=== PATIENT | female | born 1960 | race Caucasian/White ===

== ENCOUNTER 2019-12-03 09:23 | Outpatient (CLI) | payer MEDICARE, OTHER, SELFPAY ==
--- NOTE | 2019-12-03 09:25 | XR_ITS ---
WS: [id number] ABDOMEN: SUPINE FILM HISTORY: Renal Calculi COMPARISON: 08/14/2019 Prior cholecystectomy. Moderate fecal retention. Right kidney: No renal or ureteral stone identified. Left kidney: No renal or ureteral stone identified. XR/XR KUB [id number] IMPRESSION: No renal or ureteral calcifications identified.
== END 2019-12-03 09:24 | disposition home or self-care (01) ==
LOC: RAD 09:28
PROVIDERS: Family Provider Family Medicine; PCP Family Medicine; Visit Provider Urology
DX: N20.0 Calculus of kidney (principal)
CPT/HCPCS: 74018; 81001; 87077; 87086; 87186

== ENCOUNTER → 2019-12-13 09:56 | Outpatient (BNVA) | payer MEDICARE, OTHER, SELFPAY | PROVIDERS: Family Provider Family Medicine; PCP Family Medicine; Visit Provider Anesthesiology | DX: M54.5 Low back pain (principal); F17.210 Nicotine dependence, cigarettes, uncomplicated; Z71.6 Tobacco abuse counseling; Z79.891 Long term (current) use of opiate analgesic | CPT/HCPCS: 99214 ==

== ENCOUNTER 2020-02-12 12:38 | Emergency (ER) | payer MEDICARE, OTHER, SELFPAY ==
[2020-02-12 12:39] VITALS: BP 129/80; PULSE 82; RESP 18; TEMP 36.9; O2SAT 97; BMI 24.7
[2020-02-12 12:51] VITALS: RESP 16
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
[2020-02-12] MEDS: HYDROcodone-acetaminophen 7.5-325 mg Tablet 1 TAB PO (13:55)
[2020-02-12 15:40] VITALS: RESP 16; O2SAT 98
== END 2020-02-12 15:41 | disposition home or self-care (01) ==
PROVIDERS: Emergency Provider Physician Assistant; Family Provider Family Medicine; PCP Family Medicine
DX: S01.81XA Laceration without foreign body of other part of head, initial encounter (principal); V43.62XA Car passenger injured in collision with other type car in traffic accident, initial encounter
CPT/HCPCS: 12051; 12345; 70450; 70486; 73562; 99281; 99283; J2001

== ENCOUNTER 2020-02-18 10:01 | Outpatient (CLI) | payer MEDICARE, OTHER, SELFPAY ==
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
== END 2020-02-18 10:02 | disposition home or self-care (01) ==
LOC: RADWPI 10:05
PROVIDERS: Family Provider Family Medicine; PCP Family Medicine; Visit Provider Nurse Practitioner Family
DX: M54.2 Cervicalgia (principal); V89.2XXA Person injured in unspecified motor-vehicle accident, traffic, initial encounter; G44.309 Post-traumatic headache, unspecified, not intractable; M47.812 Spondylosis without myelopathy or radiculopathy, cervical region
CPT/HCPCS: 72040

== ENCOUNTER 2020-02-21 14:53 | Emergency (ER) | payer MEDICARE, OTHER, SELFPAY ==
[2020-02-21 14:58] VITALS: BP 139/97; PULSE 94; RESP 16; TEMP 36.1; O2SAT 96; BMI 24.6
--- NOTE | 2020-02-21 15:09 | ECG_ITS ---
Measurements Intervals [place] Rate: 91 P: 49 [place]: 181 QRS: 30 QRSD: 91 T: 36 QT: 339 QTc: 418 SINUS RHYTHM Compared to ECG 03/10/2019 14:59:46 Sinus tachycardia no longer present T-wave abnormality no longer present Electronically Signed On 02-21-2020 18:26:03 CDT by Nadir Navas M.D. [email or web address]
--- NOTE | 2020-02-21 15:19 | XR_ITS ---
WS: [id number] PORTABLE CHEST HISTORY: chest pain COMPARISON: 03/10/2019 Lungs are clear and well expanded. No pleural effusion or pneumothorax. Cardiac size: Normal. Mediastinum/Aorta: Normal mediastinum. No osseous abnormality seen. XR/XR chest 1V portable [id number] IMPRESSION: Unremarkable portable chest.
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
[2020-02-21 15:33] VITALS: O2SAT 98
[2020-02-21 15:56] LABS: Basophils # 0.1 10^3/uL (0.0-0.1); Basophils % 0.7 %; Eosinophils # 0.5 10^3/uL (0.0-0.8); Eosinophils % 4.6 %; Hematocrit 44.8 % (37.0-47.0); Hemoglobin 14.6 g/dL (11.5-15.3); Lymphocytes # 4.2 10^3/uL (0.8-4.8); Lymphocytes % 40.7 %; Mean Corpuscular HGB Conc 32.6 g/dL (30.0-36.0); Mean Corpuscular Hemoglobin 30.4 pg (28.0-34.0); Mean Corpuscular Volume 93.3 fL (81-99); Mean Platelet Volume 9.8 fL (7.4-10.4); Monocytes # 0.9 10^3/uL (0.2-0.9); Monocytes % 8.9 %; Neutrophils # 4.6 10^3/uL (1.8-7.7); Neutrophils % 44.7 %; Nucleated Red Blood Cells % 0 %; Platelet Count 347 10^3/cmm (130-400); Red Cell Distribution Width 14.3 % (12.1-15.1); White Blood Count 10.2 10^3/uL (4.0-10.0)
[2020-02-21] MEDS: lidocaine 2% viscous 15 ML, aluminum-mag hydrox-simethicon 30 ML, sucralfate oral liq 1 GM PO (16:03)
[2020-02-21] MEDS: sodium chloride 0.9% 1,000 ML 100 ML IV (16:03)
[2020-02-21 16:06] VITALS: BP 150/83; PULSE 92; O2SAT 95
[2020-02-21 16:21] LABS: H. Pylori IgG Antibody Negative (Negative)
[2020-02-21 16:50] LABS: Troponin(5th) Baseline 6 ng/mL (0-10)
[2020-02-21 16:56] LABS: Bilirubin Urine Neg (NEGATIVE); Blood Urine Neg (Negative); Glucose Urine UA Norm (Normal); Ketones Urine Negative (Negative); Nitrate Urine Negative (Negative); Protein Urine Neg (Negative); Urine Appearance Clear (CLEAR); Urine Color Yellow (Yellow); pH Urine 5 (5-7)
[2020-02-21 16:57] LABS: Add Urine Culture? No; Bacteria Urine 1+; Leukocyte Esterase Urine Negative (Negative); Squamous Epithelial Cell Urine 55-80 (0-5); Urobilinogen Urine Norm (Negative)
--- NOTE | 2020-02-21 17:09 | ECG_ITS ---
Measurements Intervals [place] Rate: 80 P: 48 AK: 189 QRS: 18 QRSD: 94 T: 38 QT: 357 QTc: 414 SINUS RHYTHM Compared to ECG 03/10/2019 14:59:46 Sinus tachycardia no longer present T-wave abnormality no longer present Electronically Signed On 02-21-2020 18:27:11 CDT by Nadir Navas M.D. [email or web address]
[2020-02-21 17:43] LABS: Alanine Aminotransferase 17 U/L (0-33); Albumin Level 4.3 g/dL (3.5-5.2); Alkaline Phosphatase 118 IU/L (35-105); Anion Gap 18.9 (5-19); Aspartate Amino Transferase 28 U/L (0-32); Blood Urea Nitrogen 10 mg/dL (8-23); Calcium 10.4 mg/dL (8.5-10.5); Carbon Dioxide 20 mmol/L (22-29); Chloride 104 mmol/L (98-107); Globulin 2.8 g/dL (1.3-4.6); Glomerular Filtration Rate 56.4 mL/min (90-130); Glucose 107 mg/dL (65-115); Lipase 24 U/L (13-60); Osmolality Calculated 284 mOsm/kg (285-295); Potassium 3.9 mmol/L (3.5-5.1); Sodium 139 mmol/L (136-145); Total Bilirubin 0.2 mg/dL (0.15-1.2); Total Protein 7.1 g/dL (6.6-8.7)
[2020-02-21 18:07] LABS: Troponin 5 2HR Delta 0 ABS# (0-10)
[2020-02-21 18:35] VITALS: BP 122/67; PULSE 82; O2SAT 98
== END 2020-02-21 18:35 | disposition home or self-care (01) ==
PROVIDERS: Emergency Medicine; Emergency Provider Physician Assistant; Family Provider Family Medicine; PCP Family Medicine
DX: R10.13 Epigastric pain (principal); Z79.891 Long term (current) use of opiate analgesic; Z82.49 Family history of ischemic heart disease and other diseases of the circulatory system; Z83.3 Family history of diabetes mellitus; F17.210 Nicotine dependence, cigarettes, uncomplicated
CPT/HCPCS: 12345; 36415; 71045; 80053; 81001; 83690; 83735; 84484; 85025; 86677; 93005; 96360; 96361; 99283; J7030

== ENCOUNTER 2020-03-03 07:03 | Outpatient (CLI) | payer MEDICARE, OTHER, SELFPAY ==
--- NOTE | 2020-03-03 07:07 | US_ITS ---
WS: [id number] RIGHT UPPER QUADRANT ULTRASOUND HISTORY: RIGHT UPPER QUADRANT PAIN COMPARISON: 12/07/2017 Liver: 14.5 cm in length. Normal size and echogenicity with no intrahepatic dilatation. No mass. Gallbladder: Prior cholecystectomy. CBD: 0.4 cm Pancreas: Normal size and echogenicity. Right kidney: 10.5 cm in length. Normal echogenicity with no mass or hydronephrosis. Aorta and IVC: Unremarkable. No ascites. US/US abdomen limited [id number] IMPRESSION: Interval cholecystectomy since 12/07/2017. Otherwise negative RIGHT upper quadran t.
== END 2020-03-03 07:04 | disposition home or self-care (01) ==
LOC: RAD 07:03
PROVIDERS: Family Provider Family Medicine; PCP Family Medicine; Visit Provider Nurse Practitioner Family
DX: R10.11 Right upper quadrant pain (principal); R10.13 Epigastric pain
CPT/HCPCS: 76705

== ENCOUNTER → 2020-04-02 13:16 | Outpatient (BNVA) | payer MEDICARE, OTHER, SELFPAY | PROVIDERS: Family Provider Family Medicine; PCP Family Medicine; Visit Provider Nurse Practitioner Family | DX: N30.80 Other cystitis without hematuria (principal) | CPT/HCPCS: 80053; 81001; 87077; 87086; 87186 ==

== ENCOUNTER → 2020-05-05 10:17 | Outpatient (BNVA) | payer MEDICARE, OTHER, SELFPAY | PROVIDERS: Family Provider Family Medicine; PCP Family Medicine; Visit Provider Anesthesiology | DX: M54.41 Lumbago with sciatica, right side (principal); M54.42 Lumbago with sciatica, left side; F17.210 Nicotine dependence, cigarettes, uncomplicated; Z79.891 Long term (current) use of opiate analgesic | CPT/HCPCS: 99213; 99214 ==

== ENCOUNTER 2020-06-24 13:58 | Outpatient (CLI) | payer MEDICARE, OTHER, SELFPAY ==
--- NOTE | 2020-06-24 14:00 | XR_ITS ---
WS: [id number] EXAM: ABDOMINAL KUB DATE OF EXAMINATION: 06/24/2020, 1413 hours COMPARISON: Abdominal KUB from 12/03/2019. HISTORY: Patient is 59 years old with history of kidney stones. Follow-up. FINDINGS: Bowel gas pattern is normal. Approximately 3 small calcifications are seen over the right kidney silh ouette. Largest about 3 mm in size felt to represent nonobstructing calyceal calcifications. No calci fications are seen over the left kidney silhouette. The top of both kidneys silhouettes are not inclu ded on the image. No calcifications along the course of the ureters. Changes of arthritis are seen in the spine. XR/XR KUB [id number] IMPRESSION: 3 calcification overlying the right kidney silhouette suggesting nonobstructing calyceal stones. No calcification overlying the left kidney or course of the u reters.
== END 2020-06-24 13:59 | disposition home or self-care (01) ==
LOC: RAD 14:02
PROVIDERS: PCP Family Medicine; Visit Provider Urology
DX: N20.9 Urinary calculus, unspecified (principal); N20.0 Calculus of kidney
CPT/HCPCS: 74018; 80053; 81001

== ENCOUNTER → 2020-07-31 10:49 | Outpatient (BNVA) | payer MEDICARE, OTHER, SELFPAY | PROVIDERS: Family Provider Family Medicine; PCP Internal Medicine; Visit Provider Anesthesiology | DX: M54.42 Lumbago with sciatica, left side (principal); M54.41 Lumbago with sciatica, right side; F17.210 Nicotine dependence, cigarettes, uncomplicated; Z79.891 Long term (current) use of opiate analgesic; Z71.6 Tobacco abuse counseling | CPT/HCPCS: 99214 ==

== ENCOUNTER → 2020-08-05 10:52 | Outpatient (BNVA) | payer MEDICARE, OTHER, SELFPAY | PROVIDERS: Family Provider Family Medicine; PCP Internal Medicine; Visit Provider Urology | DX: N30.80 Other cystitis without hematuria (principal); R39.198 Other difficulties with micturition; N20.9 Urinary calculus, unspecified | CPT/HCPCS: 81001 ==

== ENCOUNTER 2020-09-16 11:36 | Outpatient (CLI) | payer MEDICARE, OTHER, SELFPAY ==
--- NOTE | 2020-09-16 11:51 | MM_ITS ---
WS: [id number] BILATERAL DIGITAL SCREENING MAMMOGRAPHY WITH CAD CLINICAL INFORMATION: SCREENING HISTORY: Screening mammogram. No current complaints. COMPARISON: . TECHNIQUE: Bilateral CC and MLO views. FINDINGS: The breasts are composed of heterogeneous fibroglandular density tissue, which can limit the detectio n of small underlying mass lesions. No suspicious mass, asymmetry, calcifications, or architectural d istortion. No evidence of malignancy. Stable left and intramammary lymph nodes. Biopsy clip left [address]. Vascular calcification. A few punctate calcifications. MM/[place] [id number] IMPRESSION: BI-RADS: 2-Benign FOLLOW UP: 1 Year Follow-up Recommend return to annual screening mammography.
== END 2020-09-16 11:37 | disposition home or self-care (01) ==
LOC: RADSHAW 11:42
PROVIDERS: PCP Internal Medicine; Visit Provider Internal Medicine
DX: Z12.31 Encounter for screening mammogram for malignant neoplasm of breast (principal)
CPT/HCPCS: 77067

== ENCOUNTER → 2021-01-21 13:30 | Outpatient (BNVA) | payer MEDICARE, OTHER, SELFPAY | PROVIDERS: PCP Internal Medicine; Visit Provider Anesthesiology | DX: G89.29 Other chronic pain (principal); M54.5 Low back pain; F17.210 Nicotine dependence, cigarettes, uncomplicated; Z79.891 Long term (current) use of opiate analgesic; Z71.6 Tobacco abuse counseling | CPT/HCPCS: 99213 ==

== ENCOUNTER 2021-02-02 14:17 | Outpatient (CLI) | payer MEDICARE, SELFPAY ==
--- NOTE | 2021-02-02 14:00 | XRR_ITS ---
PROCEDURE INFORMATION: Exam: XR Abdomen Exam date and time: 02/02/2021 2:40 PM Age: 60 years old Clinical indication: Condition or disease; Kidney or ureter condition; Calculus (stone) in kidney; Prior surgery; Surgery type: Gb, tubal; Additional info: Stones TECHNIQUE: Imaging protocol: XR of the abdomen. Views: Frontal supine view of the abdomen. 1 View. COMPARISON: SC XR KUB [id number] 06/24/2020 2:11 PM FINDINGS: Gastrointestinal tract: Moderate retained feces. Continued 3 calcifications over the right kidney with some obscuration by the right transverse colon. Bones/joints: Moderate to severe multilevel spine degenerative changes including degenerative disc disease, spondylosis and facet degenerative changes. XR/XR KUB [id number] IMPRESSION: Continued 3 calcifications over the right kidney with some obscuration by the right transverse colon.
== END 2021-02-02 14:18 | disposition home or self-care (01) ==
PROVIDERS: PCP Internal Medicine; Visit Provider Urology
DX: N20.0 Calculus of kidney (principal)
CPT/HCPCS: 74018; 81003

== ENCOUNTER → 2021-06-22 10:14 | Outpatient (BNVA) | payer MEDICARE, SELFPAY | PROVIDERS: PCP Internal Medicine; Visit Provider Nurse Practitioner | DX: G89.29 Other chronic pain (principal); M54.5 Low back pain; G25.81 Restless legs syndrome; F17.210 Nicotine dependence, cigarettes, uncomplicated; Z79.891 Long term (current) use of opiate analgesic | CPT/HCPCS: 99214 ==

== ENCOUNTER 2021-08-10 14:15 | Outpatient (CLI) | payer MEDICARE, SELFPAY ==
--- NOTE | 2021-08-10 14:15 | XR_ITS ---
WS: [id number] XR KUB [id number] REASON FOR EXAM: UROLITHIASIS FINDINGS: Compared to the previous examination the calculus overlying the upper to midportion of the right kidn ey has migrated inferiorly and there are now 4 renal calculi grouped and overlying mid lower kidney. No calculi are identified in the left kidney or the remainder of the genitourinary tract. Large amount of stool in the colon. Degenerative spondylosis in the lower lumbar spine. No other significant abnormality of the abdomen. XR/XR KUB [id number] IMPRESSION: Rearrangement of right intrarenal calculi as above.
== END 2021-08-10 14:16 | disposition home or self-care (01) ==
LOC: RAD 14:17
PROVIDERS: PCP Internal Medicine; Visit Provider Urology
DX: N20.0 Calculus of kidney (principal)
CPT/HCPCS: 74018; 81003; 87077; 87086; 87184

== ENCOUNTER → 2021-09-02 10:47 | Outpatient (BNVA) | payer MEDICARE, SELFPAY | PROVIDERS: PCP Internal Medicine; Visit Provider Urology | DX: N30.80 Other cystitis without hematuria (principal); N20.9 Urinary calculus, unspecified | CPT/HCPCS: 81003 ==

== ENCOUNTER → 2021-09-14 10:22 | Outpatient (BNVA) | payer MEDICARE, SELFPAY | PROVIDERS: PCP Internal Medicine; Visit Provider Anesthesiology | DX: G89.29 Other chronic pain (principal); M54.50 Low back pain, unspecified; G25.81 Restless legs syndrome; F17.200 Nicotine dependence, unspecified, uncomplicated; Z79.891 Long term (current) use of opiate analgesic; Z71.6 Tobacco abuse counseling | CPT/HCPCS: 99214 ==

== ENCOUNTER 2021-10-09 10:26 | Outpatient (CLI) | payer MEDICARE, SELFPAY | END 2021-10-09 10:27 | disposition home or self-care (01) | PROVIDERS: PCP Family Medicine; Visit Provider Family Medicine | DX: R19.7 Diarrhea, unspecified (principal) | CPT/HCPCS: 82274; 83630; 87506; 89125 ==

== ENCOUNTER 2021-10-26 14:13 | Outpatient (CLI) | payer MEDICARE, SELFPAY ==
--- NOTE | 2021-10-26 14:21 | USCV_ITS ---
Bhumika Weinberg Age: 61 Gender: F : 1960 Exam Date: 10/26/2021 14:33 Ordering Phys: Jenelle Guillaume DO Technologist: [place] [facility] [place]: f/u eye exam s/p recent cataract surgery August 2021. Patient states that she is satisfied with the results of the cataract surgery, but that they found something on my retina. no DM. Long-term smoker, continues smoking. Risk Factors: No DM. Long-term smoker, continues smoking. Previous Vascular Surgery: None. Right Brachial BP: / Left Brachial BP: / Right Left Velocity (cm/s) Spectral Plaque Velocity (cm/s) Spectral Plaque Syst/Diast Broadening Syst/Diast Broadening 65.10/ 20.60 Min Homo Prox CCA 81.60 / 28.70 Min Homo 70.60/ 27.60 Min Homo Mid CCA 73.90 / 26.50 Min Homo 64.40/ 24.30 Min Hetro Distal CCA 81.60 / 36.40 Min Homo 55.00/ 27.80 Min Homo Prox ICA 89.30 / 33.10 Min Homo 64.60/ 31.50 Min Homo Mid ICA 65.70 / 29.60 Min Homo 61.70/ 27.60 Min Homo Distal ICA 71.00 / 36.20 Min Homo 44.80 Min Homo ECA 71.70 Min Homo 0.92 ICA/CCA 1.09 Antegrade Vertebral Antegrade 49.60/ 36.35 cm/s 39.70/ 19.80 cm/s Tri Subclavian Tri 71.70 65.10 CONCLUSIONS Right ICA stenosis <50%. Mild atheromatous plaque right carotid bulb/ICA. Left ICA stenosis <50%. Mild atheromatous plaque left carotid bulb/ICA. Normal antegrade Doppler flow noted in the right vertebral artery. Normal antegrade Doppler flow noted in the left vertebral artery. Jean Paul Arrington MD (Electronically Signed) Final Date: 26 October 2021 16:22 S
== END 2021-10-26 14:14 | disposition home or self-care (01) ==
LOC: RAD 14:17
PROVIDERS: PCP Family Medicine; Visit Provider Internal Medicine
DX: G45.1 Carotid artery syndrome (hemispheric) (principal)
CPT/HCPCS: 93880

== ENCOUNTER 2021-11-16 11:21 | Outpatient (CLI) | payer MEDICARE, SELFPAY ==
--- NOTE | 2021-11-16 | CT_ITS ---
WS: [id number] CT ABDOMEN AND PELVIS WITH CONTRAST HISTORY: CHRONIC DIARRHEA, ABD PAIN TECHNIQUE: Imaging performed of the abdomen and pelvis with IV contrast. Single phase imaging of the abdomen. Coronal and sagittal reformats are submitted. All CT scans at [facility] use at [address] [facility] one of these dose optimization techniques: automated exposure control; mA and/or kV adjustment per patient size (includes targeted exams where dose is matched to clinical indication); or iterative re construction. IV CONTRAST: Omnipaque 300; 95 mL IV. Oral contrast: Yes. DLP: 1132.92 mGycm COMPARISON: 03/10/2019 Lower thorax: Lung bases are clear. Heart is normal size. No hiatal hernia. Liver/biliary system: Liver is normal size. There is very slight central bile duct dilatation which m ay be related to cholecystectomy. Lobulated low-attenuation mass in the LEFT lobe of the liver is pro bably a small cluster of cysts. New since 2017. There is a additional low-attenuation nodule adjacent to the falciform ligament. Gallbladder: Status post cholecystectomy. Pancreas: Mild diffuse atrophy of the pancreas. No mass or pancreatitis. Spleen: Normal size spleen. No mass or infarct. Adrenal glands: Normal. Right kidney: Mild cortical thinning. Numerous calcifications within the renal pelvis are nonobstruct ing. The largest calcification measures 6 mm. These have increased in size since 03/10/2019. Left kidney: Mild cortical thinning. No solid mass. There are small nonobstructing calcifications in the renal pelvis. Aorta: Mild atherosclerosis with no aneurysm. Lymphadenopathy: None. Free fluid: None. GI tract: There is extensive constipation and fecal retention throughout the entire colon. Probably d ue to long-standing constipation. No mass or obstruction is identified. The appendix is normal. No sm all bowel obstruction. Abdominal wall: Unremarkable abdominal wall. No hernia. Pelvis: Well-distended urinary bladder. There is a 5 mm calcification in the RIGHT urinary bladder wh ich may be from a ureteral calcification. On the prior study from 2019 there was a similar size calci fication near the LEFT UV junction. Bones: L4 anterolisthesis by [address]/CT abdomen pelvis w con* [id number] IMPRESSION: 1. Diffuse obstipation. Long-standing constipation with progression since 2018. 2. Prior cholecystectomy. 3. Hepatic cysts. 4. Bilateral renal calcifications are not obstruction. 5. 5 mm calcification in the RIGHT urinary bladder.
[2021-11-16 12:57] LABS: Blood Urea Nitrogen 7 mg/dL (8-23)
== END 2021-11-16 11:22 | disposition home or self-care (01) ==
PROVIDERS: PCP Family Medicine; Visit Provider Nurse Practitioner Family
DX: R11.10 Vomiting, unspecified (principal); R19.7 Diarrhea, unspecified; R10.9 Unspecified abdominal pain; Z90.49 Acquired absence of other specified parts of digestive tract; K76.89 Other specified diseases of liver; N20.0 Calculus of kidney; N32.89 Other specified disorders of bladder
CPT/HCPCS: 74177; 82565; 84520; Q9967

== ENCOUNTER → 2021-12-14 08:52 | Outpatient (BNVA) | payer MEDICARE, SELFPAY | PROVIDERS: PCP Family Medicine; Visit Provider Anesthesiology | DX: G89.29 Other chronic pain (principal); M54.50 Low back pain, unspecified; F17.200 Nicotine dependence, unspecified, uncomplicated; Z79.891 Long term (current) use of opiate analgesic | CPT/HCPCS: 99213 ==

== ENCOUNTER 2022-03-03 09:54 | Outpatient (CLI) | payer MEDICARE, SELFPAY ==
--- NOTE | 2022-03-03 09:30 | XRR_ITS ---
PROCEDURE INFORMATION: Exam: XR Abdomen Exam date and time: 03/03/2022 10:12 AM Age: 61 years old Clinical indication: Condition or disease; Kidney or ureter condition; Calculus (stone) in ureter; Prior surgery; Surgery type: Gb; Additional info: Urolithiasis, kub TECHNIQUE: Imaging protocol: XR of the abdomen. Views: Frontal supine view of the abdomen. 1 View. COMPARISON: CT abdomen pelvis w con* [id number] 11/16/2021 1:00 PM FINDINGS: Gastrointestinal tract: Severe colonic stool burden. No bowel dilation. Organs: 5 mm stone again noted in the right bladder. A 7 mm nonobstructing stone again projects within the mid/lower right kidney. Bones/joints: Unremarkable. XR/XR KUB [id number] IMPRESSION: 1. Redemonstrated 5 mm bladder stone and 7 mm nonobstructing stone in the right kidney. 2. Severe colonic stool burden.
== END 2022-03-03 09:55 | disposition home or self-care (01) ==
LOC: RAD 09:55
PROVIDERS: PCP Family Medicine; Visit Provider Urology
DX: N20.9 Urinary calculus, unspecified (principal)
CPT/HCPCS: 74018; 81003

== ENCOUNTER 2022-03-10 08:56 | Outpatient (CLI) | payer MEDICARE, SELFPAY ==
--- NOTE | 2022-03-10 09:07 | XR_ITS ---
WS: [id number] KUB, AP view, 03/10/2022 Clinical Data: stones Comparison: KUB, 03/03/2022. Findings: No abnormal intraabdominal masses are seen. There is no dilatated small bowel or evidence of obstruct ion. There is a calcification overlying the midportion of the right kidney and calcifications overlying th e left kidney. Fecal material and bowel gas obscure detail over both kidneys. There are 2 calcificati ons in the right side of the true pelvis unchanged. XR/XR KUB [id number] Impression: 1. Bilateral calcifications over the kidneys.. 2. 2 right true pelvic calcifications unchanged.
== END 2022-03-10 08:57 | disposition home or self-care (01) ==
LOC: RAD 08:59
PROVIDERS: PCP Family Medicine; Visit Provider Urology
DX: N20.9 Urinary calculus, unspecified (principal); N30.80 Other cystitis without hematuria
CPT/HCPCS: 74018; 81003; 87077; 87086; 87186; 99214

== ENCOUNTER 2022-03-16 05:47 | Day surgery (SDC) | payer MEDICARE, SELFPAY ==
[2022-03-15 09:58] VITALS: BMI 22.3
[2022-03-16] VITALS (7 sets, daily range): BP systolic 114–160; BP diastolic 57–84; PULSE 73–99; RESP 17–21; TEMP 36.1–36.7; O2SAT 95–99
--- NOTE | 2022-03-16 | SCC_ITS ---
Procedure done: 1. Cystoscopy with right retrograde ureteropyelogram 2. Right ureteroscopy, laser lithotripsy, stent 3. Intraoperative fluoroscopy with interpretation exclusive of radiology. 19.1 seconds of fluoroscopic guidance, for a cumulative dose of 3.51 mGy, was provided to Dr. Can by the radiology department. C-arm images of the abdomen were saved for the patient's permanent record. [facility]
--- NOTE | 2022-03-16 05:53 | SC_ITS ---
WS: [id number] INTRAOPERATIVE TECHNIQUE: 2 Spot fluoroscopic images for intraoperative purposes. FLUOROSCOPY TIME: 19.1 seconds CLINICAL INFORMATION: Right ureteral stone COMPARISON: None. FINDINGS: Intraoperative fluoroscopy used for RIGHT double-J ureteral stent deployment. Cholecystectomy clips. SC/C-arm FL for Urology IMPRESSION: Images obtained for intraoperative purposes.
--- NOTE | 2022-03-16 05:53 | XR_ITS ---
WS: [id number] XR KUB [id number] REASON FOR EXAM: Preop right ureteroscopy, stone FINDINGS: Right intrarenal calculus and 2 left renal calculi are identified and unchanged compared to previous examination of 03/03/2022. Distal right ureteral calculus/calculi within the pelvis unchanged compared to previous examination . No new findings. XR/XR KUB [id number] IMPRESSION: Urinary tract calculi as above.
--- NOTE | 2022-03-16 06:18 | W.PM.OPSUD ---
Surgery/Procedure H&P Update DATE OF PROCEDURE: March 16, 2022 DATE H&P PERFORMED: 03/10/22 H&P UPDATE INFORMATION: I have reviewed H&P completed within last 30 days, I have examined patient prior to procedure, No changes to prior documentation and H[place] is in [facility] [place] indicated CHANGES TO PREVIOUS DOCUMENTATION: KUB shows stone position unchanged. Reviewed the procedure in details with benefits risks etc. Discussed stent versus no stent, possible staged procedures if stone inaccessible in a retrograde fashion today. We will proceed as scheduled PREOP DIAGNOSIS: Refractory right distal ureteral stone PLANNED PROCEDURE: Operation Date: 03/16/22 07:00 Proposed Procedures p Cystoscopy [id number]/N20.9(Not Applicable) - Albin Can MD s Right Retrograde Pyelogram(Right) - MD jann Tidwell Ureteroscopy(Right) - MD jann Tidwell Laser Lithotripsy(Right) - MD jann Tidwell Ureteral Stent Placement(Right) - Albin Can MD
[2022-03-16] MEDS: sodium chloride 0.9% 1,000 ML 30 ML IV (06:35)
[2022-03-16] MEDS: midazolam 1 mg/mL INJ 2 mL 2 MG IVP (06:55)
[2022-03-16] MEDS: levofloxacin-dextrose 5 % 500 MG/100 ML PREMIX 100 MG IV (06:58)
--- NOTE | 2022-03-16 07:03 | PM.OP ---
Operative Report Date of procedure: March 16, 2022 Pre-op diagnosis: Refractory right distal ureteral stone Post-op diagnosis: Refractory right distal ureteral stone Procedure done: 1. Cystoscopy with right retrograde ureteropyelogram 2. Right ureteroscopy, laser lithotripsy, stent 3. Intraoperative fluoroscopy with interpretation exclusive of radiology. Implants: Right ureteral stent Specimens removed/disposition: Stone fragments Pathology: Stone fragments Surgeon: Pamella Estimated blood loss: Minimal Urine output: Not measured Complications: None Findings: Stone in the expected position. Fragmented with laser and fragments removed. Stent left indwelling due to ureteral edema Brief History: Mrs. Weinberg is a very pleasant 61-year-old white female recently diagnosed with a right distal ureteral stone with symptoms preceding diagnosis probably 6 weeks. Stone measured about 5 to 6 mm in size and appeared to be somewhat jagged. Further conservative therapy did not provide further advancement of the stone down the ureter. Ultimately elected to proceed with intervention. Procedure: After routine preoperative evaluation examination and obtaining of informed consent she was taken to the operating suite on 03/16/2022 where general anesthesia was administered without difficulty. After adequate level of anesthesia was obtained she was prepped and draped in usual sterile fashion in dorsolithotomy position after appropriate timeout was performed, SCDs confirmed to be functioning, preoperative antibiotics administered, beta-chago protocol confirmed. 21 [place] cystoscope with 30 degree lens was introduced into urethra meatus and advanced into the bladder under videoscopy. Bladder was systematically examined. No stone was seen. She did demonstrate diffuse CYSTITIS CYSTICA. A cone-tip catheter was intubated into the right ureteral orifice for RIGHT RETROGRADE URETEROPYELOGRAM: ureter distal to the stone was normal. Filling defect consistent with a stone was easily identified. Ureter proximal to the stone was dilated. Flexible tip guidewire was then passed up the right ureter easily bypassing the stone. Wire was secured to the drapes as a safety wire. 7.5 [place] offset semirigid ureteroscope was then advanced up the right ureter next to the guidewire easily accessing the stone. Stone was fragmented with a 365 ?m thulium superpulse laser fiber into small pieces that were flushed or removed from the ureter with a basket There was a lot of edema where the stone had been located. It was decided to leave a stent indwelling. A 6 [place] by 26 cm double-pigtail stent was advanced over the guidewire through the cystoscope into appropriate position as confirmed via fluoroscopy and cystoscopy. It appeared that the stent was a little bit too short and for that reason it was exchanged for 6 [place] by 28 cm double-pigtail stent without string. Looked better. Stent was confirmed to be draining. Fragments were flushed in the bladder and the procedure was completed. Tolerated procedure well without complications and was awakened in the operating room and returned to the recovery room in stable condition. PLANS: 1. Anticipate discharge from outpatient surgery 2. Follow-up early next week for cystoscopy and stent removal 3. Continue antibiotics.
[2022-03-16] MEDS: iohexol 300 mg/mL 50 mL Btl (OR ONLY) XX (07:26)
--- NOTE | 2022-03-16 07:30 | ANES.PREANE2 ---
Pre-Anesthetic Assessment Height/Weight: Height 1.63 m Weight 58.967 kg Temp Pulse Resp BP Pulse Ox 97.3 F L 84 18 119/83 99 03/16/22 06:22 03/16/22 06:22 03/16/22 06:22 03/16/22 06:22 03/16/22 06:22 Preop Diagnosis: Refractory right distal ureteral stone Operation Date: 03/16/22 07:00 Proposed Procedures p Cystoscopy 63695/[id number]/N20.9(Not Applicable) - Albin Can MD s Right Retrograde Pyelogram(Right) - MD jann Tidwell Ureteroscopy(Right) - MD jann Tidwell Laser Lithotripsy(Right) - Albin Can MD s Ureteral Stent Placement(Right) - Albin Can MD Familial anesthetic complications: none Was Beta Mauricio taken within 24 hours: N/A Was Clonidine taken within 24 hours: N/A Last intake: Intake Last Liquid Date 03/15/22 Last Liquid Time 21:30 Last Solid Date 03/15/22 Last Solid Time 21:30 Social Tobacco and No alcohol Exam alert, oriented x 3 and regular rate & rhythm Diminished breath sounds b/l Airway Submandibular: within normal limits Cervical ROM: within normal limits Mallampati: Class II Dentition: false Pulmonary None reported CV/HEM None reported Mets > 4 renal stone Hepatic None reported GI None reported Metabolic None reported Musc/skel Lower Back Pain and Osteoarthritis/DJD Neuropsych Anxiety and Depression Anesthetic Plan ASA status: 2 Anesthesia: Anesthesia Evaluation and General Other: We discussed risk and benefits of general anesthesia including PONV, sore throat (sometimes severe), corneal abrasion, positioning and peripheral nerve injuries, life threatening allergic reaction, post operative ICU admission requiring prolonged intubation, stroke, heart attack, , and rare incidences of recall. Patient consents to proceed with general anesthesia. Risk of > 500 ml blood loss (7ml/kg in children): No Medications/Allergies Home Medications Medication Instructions Recorded Confirmed Last Taken Type ascorbic acid (vitamin C) 100 mg 100 mg PO BID 02/12/20 03/16/22 03/15/22 History tablet (Vitamin C) methenamine hippurate 1 gram tablet See Rx Instructions .ROUTE 03/05/21 03/16/22 03/15/22 Rx .COMPLEX #60 tab bupropion HCl 300 mg 24 hr tablet, 300 mg PO QAM 06/22/21 03/16/22 03/15/22 History extended release buspirone 10 mg tablet 10 mg PO BID tab 06/22/21 03/16/22 03/15/22 History topiramate 25 mg tablet 25 mg PO TID PRN tab 06/22/21 03/16/22 Unknown History tramadol 50 mg tablet 50 mg PO Q6H PRN 09/02/21 03/16/22 Unknown History cyclobenzaprine 10 mg tablet 10 mg PO QID 30 Days #120 tab 12/14/21 03/16/22 03/15/22 Rx ciprofloxacin HCl 500 mg tablet 500 mg PO BID #60 tab 03/14/22 03/16/22 03/15/22 Rx Allergies Allergy/AdvReac Type Severity Reaction Status Date / Time Penicillins Allergy Severe anaphylacti Verified 03/16/22 06:17 c sulfamethoxazole Allergy Severe anaphylacti Verified 03/16/22 06:17 [From Bactrim] c trimethoprim [From Bactrim] Allergy Severe anaphylacti Verified 03/16/22 06:17 c Current Medications Generic Name Dose Route Start Last Admin Trade Name Freq PRN Reason Stop Dose Admin Sodium Chloride 1,000 mls @ 30 mls/hr 03/16/22 06:00 03/16/22 06:35 Sodium Chloride 0.9% IV 03/17/22 05:59 30 mls/hr .Q24H LOREE Administration Midazolam HCl 2 mg 03/16/22 05:54 03/16/22 06:55 Midazolam 1 Mg/Ml Inj 2 Ml IVP 1 mg Q5M PRN Administration Preop Anxiety PFSH Anesthesia Medical History Chronic low back pain Cystitis cystica Encounter for long-term use of opiate analgesic S/P extracorporeal shock wave therapy Smoker unmotivated to quit Urolithiasis Surgical History S/P cholecystectomy S/P hysterectomy S/P tubal ligation Family History Family/Other CAD (coronary artery disease) Diabetes Cancer Stroke Mother , at age 67 Stroke Dementia Father , at age 53 CAD (coronary artery disease) Social History Smoking and tobacco status: current every day smoker cigarettes Packs smoked per day: 0.5 Alcohol intake: never Adopted: No Caregiver/support person: No Lives independently: No Household members: significant other Marital status: Current occupational status: disabled History of recent travel: No Data Anesthesia Cardiac Studies: No Data to Display
--- NOTE | 2022-03-16 08:09 | SUR.PHASEI ---
0801PT AWAKE ON ARRIVAL, GOOD RESP EFFORT, IV TO LT AC #20 PATENT TO 100ML NS AT MOD RATE PER GRAVITY, ABDOMEN SOFT , BILAT SCDS ON PT REQUESTS SOMETHING TO DRINK, WANTS TO SEE FIANCE PT UP IN BED PER SELF, HOB AT 40 DEGREES PT COUGHING OCCASIONALLY, VSS
--- NOTE | 2022-03-16 17:09 | ANE.PACU2 ---
Inpatient post-anesthesia follow up: Airway intact: Yes Vital signs: Temperature 97.0 F Pulse Rate 75 Respiratory Rate 18 Blood Pressure 160/84 Pulse Oximetry 97 Oxygen Delivery Me thod Room Air Oxygen Flow Rate 8 Fraction of Inspir ed Oxygen Hydration adequate: Yes Nausea and vomiting: No Pain level: 2 Mental status: Baseline
[2022-03-21 16:36] LABS: Stone Source RIGHT URETER
== END 2022-03-16 08:48 | disposition home or self-care (01) ==
PROVIDERS: PCP Family Medicine; Visit Provider Urology
PROC: 0TJB8ZZ Inspection of Bladder, Via Natural or Artificial Opening Endoscopic (ICD-10-PCS; CPT 52000; principal; 2022-03-16 07:00)
PROC: (CPT 74420; 2022-03-16 07:00)
PROC: 0TJ98ZZ Inspection of Ureter, Via Natural or Artificial Opening Endoscopic (ICD-10-PCS; CPT 52351; 2022-03-16 07:00)
PROC: (CPT 52356; 2022-03-16 07:00)
PROC: (CPT 50605; 2022-03-16 07:00)
DX: N20.1 Calculus of ureter (principal); F17.210 Nicotine dependence, cigarettes, uncomplicated
CPT/HCPCS: 52356; 74018; 76000; 82365; 88300; C2625; J0330; J1100; J1956; J2250; J2405; J2704; J2710; J3010; J3490; J7030

== ENCOUNTER → 2022-03-21 12:34 | Outpatient (BNVA) | payer MEDICARE, SELFPAY | PROVIDERS: PCP Family Medicine; Visit Provider Urology | DX: N20.9 Urinary calculus, unspecified (principal); Z96.0 Presence of urogenital implants; N30.80 Other cystitis without hematuria | CPT/HCPCS: 52310; 81003; 99213 ==

== ENCOUNTER 2022-04-08 11:19 | Outpatient (CLI) | payer MEDICARE, SELFPAY ==
--- NOTE | 2022-04-08 11:25 | MM_ITS ---
WS: [id number] BILATERAL 3D TOMOSYNTHESIS DIGITAL SCREENING MAMMOGRAPHY WITH CAD CLINICAL INFORMATION: SCREENING HISTORY: Screening mammogram. No current complaints. COMPARISON: September 16, 2020 TECHNIQUE: Bilateral CC and MLO views. FINDINGS: Scattered fibroglandular densities bilaterally. Biopsy marker LEFT breast. A few incidental punctate calcifications. Stable intramammary lymph node upper outer LEFT breast. No suspicious focal mass, asy mmetry, calcifications, or architectural distortion. No evidence of malignancy. MM/[place] [id number] IMPRESSION: BI-RADS: 2-Benign FOLLOW UP: 1 Year Follow-up Recommend return to annual screening mammography.
== END 2022-04-08 11:20 | disposition home or self-care (01) ==
LOC: RAD 11:22
PROVIDERS: PCP Family Medicine; Visit Provider Family Medicine
DX: Z12.31 Encounter for screening mammogram for malignant neoplasm of breast (principal)
CPT/HCPCS: 77063; 77067

== ENCOUNTER → 2022-07-20 13:13 | Outpatient (BNVA) | payer MEDICARE, SELFPAY | PROVIDERS: PCP Family Medicine; Visit Provider Internal Medicine | DX: R07.9 Chest pain, unspecified (principal); R06.02 Shortness of breath; F17.210 Nicotine dependence, cigarettes, uncomplicated | CPT/HCPCS: 93005; 99204 ==

== ENCOUNTER 2022-09-27 09:10 | Outpatient (CLI) | payer MEDICARE, SELFPAY ==
--- NOTE | 2022-09-27 09:28 | XRR_ITS ---
PROCEDURE INFORMATION: Exam: XR Abdomen Exam date and time: 09/27/2022 9:33 AM Age: 62 years old Clinical indication: Condition or disease; Kidney or ureter condition; Calculus (stone) in kidney; Prior surgery; Surgery type: Gb, hysto; Additional info: Urolithiasis, kub @ [facility] 09/27/22 @ 0900 appointment to follow TECHNIQUE: Imaging protocol: Radiologic exam of the abdomen. Views: Frontal supine view of the abdomen. 1 View. COMPARISON: CR XR KUB [id number] 03/16/2022 5:57 AM FINDINGS: Gastrointestinal tract: Large colonic fecal volume. Negative for dilated bowel. Intraperitoneal space: Negative for pneumoperitoneum. Right upper quadrant surgical clips. Organs: Bilateral calcified renal stones are unchanged. Bones/joints: Unremarkable. XR/XR KUB [id number] IMPRESSION: Bilateral nephrolithiasis unchanged from prior.
== END 2022-09-27 09:11 | disposition home or self-care (01) ==
LOC: RAD 09:10
PROVIDERS: PCP Family Medicine; Visit Provider Urology
DX: N20.0 Calculus of kidney (principal); N30.80 Other cystitis without hematuria; N20.9 Urinary calculus, unspecified
CPT/HCPCS: 74018; 99213

== ENCOUNTER 2023-10-14 17:18 | Emergency (ER) | payer MEDICARE, MEDICAID, SELFPAY ==
[2023-10-14 17:29] VITALS: BP 130/81; PULSE 80; RESP 16; TEMP 36.6; O2SAT 96; BMI 32.5
--- NOTE | 2023-10-14 17:36 | W.ED.EXTPRO ---
HPI - Extremity Problem General: Chief complaint: Extremity Injury, Upper Stated complaint: right wrist pain Time Seen by Provider: 10/14/23 17:34 Source: patient Mode of arrival: ambulatory Limitations: no limitations History of Present Illness: Patient is a 63-year-old female presents to ED today with a complaint of atraumatic right wrist pain that she began noticing approximately 3 days ago or so. As stated she has not had any injury or trauma to the wrist. No falls. Patient has not noticed any swelling to the arm or joint. Pain is significantly made worse with range of motion of the wrist. She seems to have normal range of motion of her elbow and all digits. She has not noticed any color or temperature changes to the extremity. Denies numbness, tingling, loss of sensation. No systemic symptoms. MD Complaint: joint pain Onset (ago): day(s) Pain Consistency: constant Location: right and upper extremity Radiation: none Relieving factors: immobilization Exacerbating factors: range of motion Associated symptoms: Reports no associated symptoms; Deny chest pain, fever(s) or rash Review of Systems Const: Denies: fever(s), chills, body aches, fatigue or malaise Card: Denies: chest pain Resp: Denies: dyspnea Musc: Reports: joint pain and limited range of motion; Denies: neck pain, back pain, extremity pain, extremity swelling, joint swelling, joint redness, joint warmth or muscle weakness Skin/Breast: Denies: rash Neuro: Denies: numbness in extremities, weakness in extremities or sensory changes PFS ED PFSH: Medical History Smoker unmotivated to quit Chronic low back pain Encounter for long-term use of opiate analgesic S/P extracorporeal shock wave therapy Urolithiasis Cystitis cystica Surgical History S/P cholecystectomy S/P hysterectomy S/P tubal ligation Family History Family/Other CAD (coronary artery disease) Diabetes Cancer Stroke Mother , at age 67 Stroke Dementia Father , at age 53 CAD (coronary artery disease) Social History Smoking and tobacco/nicotine status: current every day tobacco/nicotine user cigarettes Packs smoked per day: 0.5 Alcohol intake: never Substance/Drug Use: never Adopted: No Caregiver/support person: No Lives independently: No Household members: significant other Marital status: Current occupational status: disabled Physical Exam Const: COMMON NORMALS: no acute distress, average body habitus, patient oriented x3, no limitations, healthy appearing, alert and well nourished Extremity: COMMON NORMALS: normal to inspection, capillary refill normal, no joint enlargement, no clubbing, cyanosis or edema and no pedal edema GENERAL: Yes normal exam except as noted RIGHT UPPER EXTREMITY: Yes wrist Right wrist: Yes inspection (normal gross inspection) and Yes neurovascular exam (normal) OTHER: Patient has tenderness throughout her right wrist joint without swelling/edema. Pain is worse with ROM although she maintains micromovements-pain is not out of proportion. She has easily palpable radial pulse with normal sensation distally. There are no color or temperature changes to the wrist or hand when compared to the left. No overlying abrasions/scrapes/wounds/etc. Nothing to suggest infection. Neuro: COMMON NORMALS: patient oriented x3, moves all extremities, no focal motor deficits and no sensory deficits noted SENSORIUM/ORIENTATION: Yes alert Course Vital Signs: Vital signs: Vital Signs Temperature 97.8 F 10/14/23 17:29 Pulse Rate 80 10/14/23 17:29 Respiratory Rate 16 10/14/23 17:29 Blood Pressure 130/81 10/14/23 17:29 Pulse Oximetry 96 10/14/23 17:29 Oxygen Delivery Me thod Room Air 10/14/23 17:29 MDM - Extremity (Nontraumatic) Medical Decision Making Patient here with atraumatic pain to the right wrist. I feel like XRs at this time would be low yield. Based on history and physical exam I do not have any concerns for DVT, arterial occlusion, compartment syndrome, infectious tenosynovitis, septic arthritis, or any other emergent process. Patient will be treated with steroids, anti-inflammatories, and wrist splint. I recommend she follow-up with her primary care provider this week for re-evaluation. Return to ED precautions given. No radiology studies performed this visit Discharge Plan Discharge Patient Disposition: Home Clinical Impression: Inflammation of tendon, ligament or capsule of wrist joint Condition: Stable Prescriptions: New Medrol (Darren) 4 mg tablets,dose pack See Rx Instructions .ROUTE .COMPLEX Qty: 21 0RF Rx Instructions: orally per package directions Celebrex 100 mg capsule 100 mg PO BID Qty: 14 0RF No Action bupropion HCl 300 mg tablet extended release 24 hr 300 mg PO QAM tramadol 50 mg tablet 50 mg PO Q6H PRN (Reason: Pain, Moderate) cyclobenzaprine 10 mg tablet 10 mg PO QID 30 Days Qty: 120 2RF acetaminophen-codeine 300-30 mg tablet 1 tab PO Q4H PRN Vitamin C 100 mg Tablet 100 mg PO BID Hold Instructions: Resume on 03/30/22. topiramate 25 mg tablet 25 mg PO TID PRN (Reason: Migraine Headache) buspirone 10 mg tablet 10 mg PO BID Discharge Orders: Discharge ED (Routine); Ordered 10/14/23 Ordered By: Amanda Grimaldo Referrals: Gab Ureña MD [Primary Care Provider] - Coding Level of Care Code ED [place] [employer] Machine Operator for Estevan Blake
[2023-10-14] MEDS: ketorolac 30 mg/mL INJ IM (18:01)
[2023-10-14] MEDS: dexamethasone 10 mg/mL INJ 8 MG IM (18:01)
== END 2023-10-14 18:17 | disposition home or self-care (01) ==
PROVIDERS: Emergency Provider Physician Assistant; PCP Family Medicine
DX: M77.8 Other enthesopathies, not elsewhere classified (principal); F17.210 Nicotine dependence, cigarettes, uncomplicated
CPT/HCPCS: 96372; 99284; J1100; J1885

== ENCOUNTER 2024-07-09 11:52 | Outpatient (CLI) | payer MEDICARE, MEDICAID, SELFPAY ==
--- NOTE | 2024-07-09 11:57 | XRR_ITS ---
PROCEDURE INFORMATION: Exam: XR Right Foot Exam date and time: 07/09/2024 12:14 PM Age: 63 years old Clinical indication: Injury or trauma; Other: Stubbed toes; Blunt trauma; Right lesser toe(s); Injury date: 3 or 4 days ago; Injury details: RT foot pain after stubbing 4th and 5th digit 1 day ago; Additional info: Pain in right foot TECHNIQUE: Imaging protocol: Radiologic exam of the right foot. Views: 3 or more views. COMPARISON: CR XR knee RT 3V* [id number] 02/12/2020 1:35 PM FINDINGS: Bones/joints: Mild hallux valgus. First MTP degenerative change. Mild degenerative changes of the IP joints throughout the forefoot. No acute fracture or dislocation. No bone erosion evident. Soft tissues: No significant soft tissue pathology. XR/XR foot RT min 3V* [id number] IMPRESSION: No acute pathology.
== END 2024-07-09 11:53 | disposition home or self-care (01) ==
LOC: RAD 11:56
PROVIDERS: PCP Family Medicine; Visit Provider Family Medicine
DX: M19.071 Primary osteoarthritis, right ankle and foot (principal); W22.8XXA Striking against or struck by other objects, initial encounter; M79.671 Pain in right foot
CPT/HCPCS: 73630

== ENCOUNTER → 2024-07-16 10:57 | Outpatient (BNVA) | payer MEDICARE, MEDICAID, SELFPAY | PROVIDERS: PCP Family Medicine; Referring Provider Family Medicine; Visit Provider Student in an Organized Health Care Education/Training Program | DX: Z12.11 Encounter for screening for malignant neoplasm of colon (principal) | CPT/HCPCS: 99024; 99204 ==

== ENCOUNTER 2024-07-24 10:30 | Outpatient (CLI) | payer MEDICARE, MEDICAID, SELFPAY ==
--- NOTE | 2024-07-24 10:34 | MM_ITS ---
WS: [id number] SCREENING DIGITAL BREAST TOMOSYNTHESIS MAMMOGRAM WITH CAD HISTORY: SCREENING COMPARISON: 12/26/2017, 09/16/2020 and 04/08/2022 Bilateral CC and MLO with tomosynthesis and synthetic mammography submitted. Computer aided detection analyzed. Breast composition: There are scattered areas of fibroglandular density. Poorly positioned lateral projections. Overlapping inframammary folds. Incomplete inclusion of the ax illa. There is a new 5 mm well-circumscribed nodule in the anterior breast central to the nipple whic h needs further evaluation. The remaining nodules are stable. No distortion. Biopsy clip mid LEFT kasandra ast. MM/MM scr BI tomosynthesis [id number] IMPRESSION: BI-RADS: 0 - Incomplete: Need additional imaging evaluation. FOLLOW UP: Need Additional Imaging 1. LEFT breast: Spot compression views (CC and MLO). True ML. Ultrasound to fo llow if abnormality persists. Spot compressions of the mass in the anterior LEF T breast. 2. Additional bilateral MLO views for better positioning. Need to include more of the axilla and eliminate overlying soft tissue at the inframammary folds.
== END 2024-07-24 10:31 | disposition home or self-care (01) ==
LOC: RAD 10:30
PROVIDERS: PCP Family Medicine; Visit Provider Family Medicine
DX: Z12.31 Encounter for screening mammogram for malignant neoplasm of breast (principal); R92.323 Mammographic fibroglandular density, bilateral breasts; N63.20 Unspecified lump in the left breast, unspecified quadrant
CPT/HCPCS: 77063; 77067

== ENCOUNTER → 2024-07-30 13:41 | Outpatient (BNVA) | payer MEDICARE, MEDICAID, SELFPAY | PROVIDERS: PCP Family Medicine; Visit Provider Internal Medicine | DX: R07.9 Chest pain, unspecified (principal); R06.02 Shortness of breath; E78.5 Hyperlipidemia, unspecified | CPT/HCPCS: 99214 ==

== ENCOUNTER 2024-08-21 08:38 | Outpatient (CLI) | payer MEDICARE, MEDICAID, SELFPAY ==
[2024-08-21 09:09] VITALS: BMI 30.1
--- NOTE | 2024-08-21 09:12 | ECG_ITS ---
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 Interpretive Statements LEXISCAN SESTAMIBI STRESS TEST Procedure: At the baseline, the blood pressure was 131/86mmHg with a heart rate of 68 bpm. The electrocardiogram showed normal sinus rhythm, normal axis with normal ST and T's. The Lexiscan was infused over a period of 20 seconds. A total of 0.4 mg of Lexiscan was infused. The stress phase was continued for a total of 5 minutes. Heart rate was at the end of stress phase was 79 bpm and a blood pressure of 118/80 mmHg. The EKG at the peak infusion revealed normal sinus rhythm with no significant ST-T wave changes. Sestamibi was injected 20 seconds after the Lexiscan infusion. Blood pressure at the end of recovery phase was 124/87 mmHg with a heart rate of 86 bpm. Conclusion: 1. Normal EKG response to Lexiscan infusion 2. No Lexiscan induced chest pain or cardiac arrhythmia. 3. Normal blood pressure and heart rate response. 4. Sestamibi/sestamibi perfusion scan pending; see separate report. Electronically Signed On 08-22-2024 10:33:43 CDT by Mehran Martin M.D. [email or web address]
--- NOTE | 2024-08-21 09:12 | NMCV_ITS ---
NM shayla perf SPECT r/s* [id number] Bhumika Weinberg Age: 64 Gender: F : 1960 Exam Date: 08/21/2024 09:12 Ordering Phys: Mehran Martin M.D ([email or web address]) Technologist: AMANDA Disla Exam Location: [facility] [place] Indications: cp STRESS TEST Please see separate stress test report in [facility] for full findings IMAGE PROTOCOL Rest/Stress 1 Lexiscan Day Radiopharmaceutical Dose (mCi) Administration Site Administered by Rest: Tc-99m 10.9 IV AMANDA Salazar Sestamibi Stress:Tc-99m 32.2 IV AMANDA Ruiz Sestamibi Rest: 21-Aug-2024 60 Discovery 630 Stress: 21-Aug-2024 30 Discovery 630 0.4mg Lexiscan. Images obtained in supine and prone position. SPECT RESULTS Technical Quality: Good Raw Data Analysis: Normal Image Corrections: No attenuation or motion correction applied Summed Stress Score: 0 Summed Rest Score: 0 Summed Difference Score: 0 PERFUSION FINDINGS Large area of patchy decreased tracer uptake noted in basal to distal inferior wall which showed mild reversibility in the distal inferior wall segment suggestive of old myocardial infarction surrounded by mild marciano-infarct ischemia however cannot rule out artifact since there is no wall motion abnormality. Clinical correlation advised. FUNCTIONAL RESULTS (calculated via Gated SPECT) Stress Image LV EF (%): 80 Stress EDV (mL):54 TID: 0.88 Stress ESV (mL):11 FUNCTIONAL FINDINGS: There is normal left ventricular systolic function. IMPRESSIONS Large area of old myocardial infarction noted in basal to distal inferior wall surrounded by small to moderate area of mild marciano-infarct ischemia, there is no wall motion abnormality therefore cannot rule out artifact, clinical correlation advised. EKG segment will be documented separately. Nadir Navas MD (Electronically Signed) Final Date: 22 August 2024 21:26 S
[2024-08-21] MEDS: regadenoson 0.4 Mg/5 ml Syringe IVP (11:10)
[2024-08-21] MEDS: aminophylline 25 mg/mL SDV 10 mL IVP (11:22)
[2024-08-21 11:23] VITALS: BP 124/87; PULSE 86
== END 2024-08-21 08:39 | disposition home or self-care (01) ==
LOC: CDL 08:39
PROVIDERS: PCP Family Medicine; Visit Provider Internal Medicine
DX: R07.9 Chest pain, unspecified (principal); R06.02 Shortness of breath; R94.39 Abnormal result of other cardiovascular function study
CPT/HCPCS: 36415; 78452; 93017; 96374; 96375; A9500; J0280; J2785

== ENCOUNTER 2024-09-03 11:03 | Outpatient (CLI) | payer MEDICARE, MEDICAID, SELFPAY ==
--- NOTE | 2024-09-03 11:07 | MM_ITS ---
WS: [id number] ADDITIONAL VIEWS LEFT MAMMOGRAM with tomosynthesis. LEFT BREAST ULTRASOUND HISTORY: ABNORMAL MAMMOGRAM COMPARISON: 07/24/2024, 04/08/2022 LEFT MAMMOGRAM: Spot compression views and true ML with tomosynthesis and sympathetic mammography. RI GHT MLO to be read in conjunction with the prior screening exam. Well-circumscribed high density mass persists in the subareolar location at a middle depth. This is a well-circumscribed mass measuring 3 x 4 x 5 mm. There are additional high density masses which are s table. LEFT BREAST ULTRASOUND 2-D and color Doppler imaging submitted. Well-circumscribed cyst with through transmission subareolar near 3:00 measures 3 x 3 x 2 mm. This co rresponds in size and location to the mammographic abnormality. MM/MM diag LT tomosynthesis [id number] IMPRESSION: BI-RADS: 2- Benign FOLLOW UP: 1 Year Follow-up
== END 2024-09-03 11:04 | disposition home or self-care (01) ==
LOC: RAD 11:05
PROVIDERS: PCP Family Medicine; Visit Provider Family Medicine
DX: N60.02 Solitary cyst of left breast (principal)
CPT/HCPCS: 76642; 77061; G0279

== ENCOUNTER 2024-09-08 10:27 | Emergency (ER) | payer MEDICARE, MEDICAID, SELFPAY ==
[2024-09-08 10:42] VITALS: BP 146/83; PULSE 87; RESP 20; TEMP 36.4; O2SAT 97
[2024-09-08 10:57] LABS: Bilirubin Urine Negative (Negative); Blood Urine 2+ (Negative); Glucose Urine UA Negative (Normal); Ketones Urine Negative (Negative); Leukocyte Esterase Urine 2+ (Negative); Nitrate Urine Negative (Negative); Protein Urine Negative (Negative); Specific Gravity, Urine 1.018 (1.005-1.030); Urine Appearance Clear (CLEAR); Urine Color Yellow (Yellow); Urobilinogen Urine 0.2 mg/dL (Negative); pH Urine 5.5 (5-7)
[2024-09-08 11:00] LABS: Add Urine Microscopic? YES; Bacteria Urine 1+ /hpf; Hyaline Casts Urine 0-4 /lpf; Squamous Epithelial Cell Urine 0-5 /hpf (0-5)
[2024-09-08 11:03] LABS: Add Urine Culture? Yes
--- NOTE | 2024-09-08 11:12 | CTR_ITS ---
PROCEDURE INFORMATION: Exam: CT Abdomen And Pelvis Without Contrast Exam date and time: 09/08/2024 12:28 PM Age: 64 years old Clinical indication: Abdominal pain; Flank; Right; Prior surgery; Surgery date: 6+ months; Surgery type: Gb; Additional info: Renal colic TECHNIQUE: Imaging protocol: Computed tomography of the abdomen and pelvis without contrast. Radiation optimization: All CT scans at this facility use at least one of these dose optimization techniques: automated exposure control; mA and/or kV adjustment per patient size (includes targeted exams where dose is matched to clinical indication); or iterative reconstruction. COMPARISON: CT abdomen pelvis w con* [id number] 11/16/2021 1:00 PM RADIATION DOSE METRICS: Total DLP (mGy-cm): 942.92 FINDINGS: Lungs: Minimal atelectatic changes in lower lobes posteriorly. No focal infiltrate. Liver: Mild fatty infiltration. Gallbladder and biliary ducts: Cholecystectomy. Pancreas: Unremarkable Spleen: Normal. No splenomegaly. Adrenal glands: Normal. Kidneys and ureters: No calculus or hydronephrosis right kidney. No calculus in the right ureter. Left kidney show nonobstructing calculi 3 mm and 1 mm calculus in upper calyx and 5 mm calyx in mid calyx. Left ureter is normal caliber. Stomach and bowel: Diverticulosis colon. No obstruction or acute inflammation. Appendix: No evidence of appendicitis. Intraperitoneal space: No free air. No significant fluid collection. Vasculature: Scattered calcifications in the aorta. No abdominal aortic aneurysm. Lymph nodes: No enlarged lymph nodes. Urinary bladder: Unremarkable as visualized. Reproductive: Hysterectomy noted. Bones/joints: No acute fracture. Minimal spondylotic changes. Minimal chronic anterolisthesis L4 over L5. Benign-appearing small focal area of sclerosis in T10 vertebra. Soft tissues: Small umbilical hernia containing fat. CT/CT abdomen pelvis wo con [id number] IMPRESSION: No acute intra-abdominal or pelvic findings. Nonobstructive left renal calculi noted.
[2024-09-08 11:29] LABS: Basophils # 0.1 10^3/uL (0.0-0.1); Basophils % 0.7 %; Eosinophils # 0.4 10^3/uL (0.0-0.8); Eosinophils % 4.6 %; Hematocrit 42.9 % (36-47); Lymphocytes # 3.2 10^3/uL (0.8-4.8); Lymphocytes % 34.8 %; Mean Corpuscular HGB Conc 32.9 g/dL (30-55); Mean Corpuscular Hemoglobin 30.7 pg (27-33); Mean Corpuscular Volume 93.3 fl (85-98); Mean Platelet Volume 8.7 fL (7.4-10.4); Monocytes # 0.8 10^3/uL (0.2-0.9); Monocytes % 8.4 %; Neutrophils # 4.72 10^3/uL (1.8-7.7); Neutrophils % 51.1 %; Nucleated Red Blood Cells % 0 %; Platelet Count 288 10^3/cmm (157-399); White Blood Count 9.22 10^3/uL (3.29-11.43)
[2024-09-08] MEDS: sodium chloride 0.9% 1,000 ML 999 ML IV (11:43)
[2024-09-08 11:44] LABS: Anion Gap 13.3 (5-19); Blood Urea Nitrogen 19 mg/dL (8-23); Calcium 9.8 mg/dL (8.5-10.5); Carbon Dioxide 26 mmol/L (22-29); Chloride 102 mmol/L (98-107); Creatinine Clr Calc Pharmacy 66.6596; Glomerular Filtration Rate 62.6 mL/min (90-130); Glucose 126 mg/dL (65-115); Osmolality Calculated 288 mOsm/kg (285-295); Potassium 4.3 mmol/L (3.5-5.1); Sodium 137 mmol/L (136-145)
[2024-09-08 11:45] VITALS: RESP 18; O2SAT 93
[2024-09-08] MEDS: morphine 4 mg/mL SDV 1 mL IVP (11:45)
[2024-09-08] MEDS: ketorolac 30 mg/mL INJ IVP (11:45)
[2024-09-08] MEDS: ondansetron 2 mg/ML SDV 2 mL 4 MG IVP (11:45)
[2024-09-08] MEDS: levofloxacin-dextrose 5 % 500 MG/100 ML PREMIX 100 MG IV (11:51)
[2024-09-08 12:15] VITALS: BP 121/78; PULSE 84; RESP 16; O2SAT 95
--- NOTE | 2024-09-08 12:15 | PC.PHAR ---
Pt states has trouble getting Bupropion 300mg and Buspirone 10mg filled. Pharmacy always tells her she is ordering refills too early. Pt has been out of Bupropion for a week.
--- NOTE | 2024-09-08 14:45 | ED_ITS ---
HPI - Abdominal Pain 2 General: Chief Complaint: Abdominal Pain Stated Complaint: blood in urine Time Seen by Provider: 09/08/24 10:42 History of Present Illness: This patient is a 64-year-old white female who presents to the ER complaining of right sided pelvic pain which she thinks is a kidney stone. She states this started last week. She is having some dysuria as well. No fever. She does have a history of kidney stones. Associated Symptoms: Reports dysuria Related Data Home Medications Medication Instructions Recorded Confirmed ascorbic acid (vitamin C) 100 mg 100 mg PO BID 02/12/20 09/08/24 tablet (Vitamin C) bupropion HCl 300 mg 24 hr tablet, 300 mg PO QAM 06/22/21 09/08/24 extended release buspirone 10 mg tablet 10 mg PO BID 06/22/21 09/08/24 atorvastatin 10 mg tablet 10 mg PO DAILY 07/16/24 09/08/24 citalopram 40 mg tablet 40 mg PO BID 07/16/24 09/08/24 metoprolol succinate 25 mg 25 mg PO DAILY 07/16/24 09/08/24 tablet,extended release 24 hr trazodone 150 mg tablet 150 mg PO QPM 07/16/24 09/08/24 cyclobenzaprine 10 mg tablet 10 mg PO QID PRN Muscle Spasm 08/01/24 09/08/24 hydrocodone 10 mg-acetaminophen 1 tab PO QID PRN Pain 09/08/24 09/08/24 325 mg tablet Previous Rx's Medication Instructions Recorded ciprofloxacin HCl 500 mg tablet 500 mg PO BID #20 tabs 09/08/24 (Cipro) Allergies Allergy/AdvReac Type Severity Reaction Status Date / Time Penicillins Allergy Severe anaphylacti Verified 08/01/24 12:25 c sulfamethoxazole Allergy Severe anaphylacti Verified 08/01/24 12:25 [From Bactrim] c trimethoprim [From Bactrim] Allergy Severe anaphylacti Verified 08/01/24 12:25 c Sulfa (Sulfonamide Allergy Unknown Verified 08/01/24 12:25 Antibiotics) Review of Systems 2 General: Reports: 10 or more systems reviewed and unremarkable except in HPI and below GI: Reports: abdominal pain : Reports: dysuria PFSH ED 2 PFSH: Medical History Smoker unmotivated to quit Chronic low back pain Encounter for long-term use of opiate analgesic S/P extracorporeal shock wave therapy Urolithiasis Cystitis cystica Surgical History S/P cholecystectomy S/P hysterectomy S/P tubal ligation Family History Family/Other CAD (coronary artery disease) Diabetes Cancer Stroke Mother , at age 67 Stroke Dementia Father , at age 53 CAD (coronary artery disease) Social History Smoking and tobacco/nicotine status: current every day tobacco/nicotine user cigarettes Packs smoked per day: 0.5 Alcohol intake: never Substance/Drug Use: never Adopted: No Caregiver/support person: No Lives independently: No Household members: significant other Marital status: Current occupational status: disabled Physical Exam 2 Const: COMMON NORMALS: no acute distress, patient oriented x3 and no limitations GENERAL APPEARANCE: cooperative and comfortable HENMT: COMMON NORMALS: normocephalic, atraumatic, Normal nasal mucous membranes and turbinates present, moist oral mucous membranes and oropharynx normal HEAD & SCALP: normal to inspection, normocephalic and atraumatic F JIMMY & SINUS: normal facial exam NOSE: Normal nasal mucous membranes and turbinates present Eye: COMMON NORMALS: Equal, round and reactive pupils present, EOMs intact bilaterally and conjunctivae normal GENERAL EYE: appearance normal, both eyes and all related structures CONJUNCTIVA: Yes conjunctivae normal PUPIL: Yes Equal, round and reactive pupils present Neck/C-Spine: COMMON NORMALS: supple and no JVD Chest: COMMONS NORMALS: normal inspection of the chest Resp: COMMON NORMALS: normal respiratory effort and clear to auscultation bilaterally AUSCULTATION: clear to auscultation bilaterally Cardio: COMMON NORMALS: no JVD, regular rate, regular rhythm, No gallops present (Cardio), No murmurs present (Cardio) and No rub (Cardio) RATE: r egular rate RHYTHM: regular rhythm GI: COMMON NORMALS: Normal to inspection, nondistended, normoactive bowel sounds present, Soft to palpation and non-tender AUSCULTATION: Yes normoactive bowel sounds PALPATION: Yes Soft to palpation : COMMON NORMALS: Yes no CVA tenderness BLADDER/KIDNEY EXAM: Yes no CVA tenderness Back/Pelvis: COMMON NORMALS: no CVA tenderness and thoracic and lumbar spine normal to inspection Extremity: COMMON NORMALS: normal to inspection Neuro: COMMON NORMALS: patient oriented x3 and CN's II-XII intact bilaterally Psych: COMMON NORMALS: mental status grossly normal, Normal thought process present and cooperative THOUGHT PROCESS: Normal thought process present Skin: COMMON NORMALS: no rashes or lesions noted, turgor normal and no jaundice GENERAL SKIN EXAM: no rashes or lesions noted and turgor normal Course 2 Vital Signs: Vital signs: Vital Signs Temperature 97.5 F L 09/08/24 10:42 Pulse Rate 84 09/08/24 12:15 Respiratory Rate 16 09/08/24 12:15 Blood Pressure 121/78 09/08/24 12:15 Pulse Oximetry 95 09/08/24 12:15 Oxygen Delivery Me thod Room Air 09/08/24 12:15 MDM - Abdominal Pain Medical Decision Making CBC and BMP were normal. Urine analysis is consistent with urinary tract infection. CT scan of the abdomen and pelvis was read by the radiologist as normal. No obvious stone. Patient was treated with Levaquin in the emergency department. She was discharged in stable condition with prescription for ciprofloxacin. Recommended she follow-up with her primary care physician later this week for recheck if this has not resolved. Lab Data 09/08/24 11:22 09/08/24 11:22 Labs/Radiology: Radiology Impressions Abdomen/Pelvis CT 09/08/24 11:12 IMPRESSION: No acute intra-abdominal or pelvic findings. Nonobstructive left renal calculi noted. Laboratory Results WBC 9.22 10^3/uL (3.29-11.43) 09/08/24 11:22 RBC 4.60 10^6/uL (3.85-5.65) 09/08/24 11:22 Hgb 14.10 g/dL (11.27-16.99) 09/08/24 11:22 Hct 42.9 % (36-47) 09/08/24 11:22 MCV 93.3 fl (85-98) 09/08/24 11:22 MCH 30.7 pg (27-33) 09/08/24 11:22 MCHC 32.9 g/dL (30-55) 09/08/24 11:22 RDW 15.0 % (12.1-15.1) 09/08/24 11:22 Plt Count 288 10^3/cmm (157-399) 09/08/24 11:22 MPV 8.7 fL (7.4-10.4) 09/08/24 11:22 Neut % (Auto) 51.1 % 09/08/24 11:22 Lymph % (Auto) 34.8 % 09/08/24 11:22 [place] % (Auto) 8.4 % 09/08/24 11:22 Eos % (Auto) 4.6 % 09/08/24 11:22 Baso % (Auto) 0.7 % 09/08/24 11:22 Neut # (Auto) 4.72 10^3/uL (1.8-7.7) 09/08/24 11:22 Lymph # (Auto) 3.2 10^3/uL (0.8-4.8) 09/08/24 11:22 [place] # (Auto) 0.8 10^3/uL (0.2-0.9) 09/08/24 11:22 Eos # (Auto) 0.4 10^3/uL (0.0-0.8) 09/08/24 11:22 Baso # (Auto) 0.1 10^3/uL (0.0-0.1) 09/08/24 11:22 Nucleated RBC % (auto) 0 % 09/08/24 11:22 Nucleated RBCs # 0.0 /100WBC 09/08/24 11:22 Sodium 137 mmol/L (136-145) 09/08/24 11:22 Potassium 4.3 mmol/L (3.5-5.1) 09/08/24 11:22 Chloride 102 mmol/L (98-107) 09/08/24 11:22 Carbon Dioxide 26 mmol/L (22-29) 09/08/24 11:22 Anion Gap 13.3 (5-19) 09/08/24 11:22 BUN 19 mg/dL (8-23) 09/08/24 11:22 Creatinine 0.9 mg/dL (0.5-0.9) 09/08/24 11: GFR Calculation 62.6 mL/min (90-130) L 09/08/24 11:22 Glucose 126 mg/dL (65-115) H 09/08/24 11:22 Calculated Osmolality 288 mOsm/kg (285-295) 09/08/24 11:22 Calcium 9.8 mg/dL (8.5-10.5) 09/08/24 11:22 Urine Color Yellow (Yellow) 09/08/24 10:45 Urine Appearance Clear (CLEAR) 09/08/24 10:45 Urine pH 5.5 (5-7) 09/08/24 10:45 Ur Specific [place] 1.018 (1.005-1.030) 09/08/24 10:45 Urine Protein Negative (Negative) 09/08/24 10:45 Urine Glucose (UA) Negative (Normal) 09/08/24 10:45 Urine Ketones Negative (Negative) 09/08/24 10:45 Urine Blood 2+ (Negative) A 09/08/24 10:45 Urine Nitrate Negative (Negative) 09/08/24 10:45 Urine Bilirubin Negative (Negative) 09/08/24 10:45 Urine Urobilinogen 0.2 mg/dL (Negative) 09/08/24 10:45 Ur Leukocyte Esterase 2+ (Negative) A 09/08/24 10:45 Urine RBC 6-10 /hpf (0-2) 09/08/24 10:45 Urine WBC 11-20 /hpf (0-5) H 09/08/24 10:45 Ur Squamous Epith Cells 0-5 /hpf (0-5) 09/08/24 10:45 Amorphous Sediment Not Reportable 09/08/24 10:45 Urine Bacteria 1+ /hpf (NONE) H 09/08/24 10:45 Hyaline Casts 0-4 /lpf H 09/08/24 10:45 All radiology interpretation(s) finalized by discharge Discharge Plan Discharge Patient Disposition: Home Clinical Impression: Acute UTI Condition: Stable Prescriptions: New ciprofloxacin HCl [Cipro] 500 mg tablet 500 mg PO BID Qty: 20 0RF No Action bupropion HCl 300 mg tablet extended release 24 hr 300 mg PO QAM metoprolol succinate 25 mg tablet extended release 24 hr 25 mg PO DAILY atorvastatin 10 mg tablet 10 mg PO DAILY citalopram 40 mg tablet 40 mg PO BID trazodone 150 mg tablet 150 mg PO QPM cyclobenzaprine 10 mg tablet 10 mg PO QID PRN (Reason: Muscle Spasm) Vitamin C 100 mg Tablet 100 mg PO BID Hold Instructions: Resume on 03/30/22. buspirone 10 mg tablet 10 mg PO BID hydrocodone-acetaminophen 10-325 mg tablet 1 tab PO QID PRN (Reason: Pain) Discharge Orders: Discharge ED (Routine); Ordered 09/08/24 Ordered By: Gumaro Noriega Referrals: Gab Ureña MD [Primary Care Provider] - Patient Instructions: Urinary Tract Infection in Women (DC) Activity Restrictions/Additional Instructions: Follow-up with your primary care provider later this week if no improvement. Coding Level of Care Code ED Ic [employer] for Estevan Blake
== END 2024-09-08 13:29 | disposition home or self-care (01) ==
PROVIDERS: Emergency Medicine; Emergency Provider Emergency Medicine; PCP Family Medicine
DX: N39.0 Urinary tract infection, site not specified (principal); F17.210 Nicotine dependence, cigarettes, uncomplicated
CPT/HCPCS: 74176; 80048; 81001; 85025; 87086; 96374; 96375; 99285; J1885; J1956; J2270; J2405; J7030

== ENCOUNTER 2024-09-30 17:01 | Emergency (ER) | payer MEDICARE, MEDICAID, SELFPAY ==
[2024-09-30 17:30] VITALS: BP 112/68; PULSE 97; RESP 17; TEMP 37.2; O2SAT 96; BMI 35.4
[2024-09-30 18:45] VITALS: BP 126/64; PULSE 81; RESP 16; O2SAT 93
--- NOTE | 2024-09-30 19:02 | ED_ITS ---
HPI - Fever 2 General: Chief Complaint: Headache Stated Complaint: SEVERE HEADACHE Time Seen by Provider: 09/30/24 18:48 Source: patient Mode of arrival: ambulatory Limitations: no limitations History of Present Illness: This patient presented to the emerged part because of fever and headache. She states that she awoke with a headache and then took her temperature noted her temperature was 103 range. She states that she was recently seen in the emergency department for flank pain and she thought she had a kidney stone. She was told at that time and they did not discover any kidney stones but she states that later that same day she passed a stone in the toilet. She has had a prior history of kidney stones and has had instrumentation for kidney stones as well. She is also had a prior history of infection with kidney stones. She states that she took Tylenol as well as hydrocodone today and her symptoms are some better. She denies any neck pain. She has flank and low back pain as well without injury history. Denies any numbness or weakness or radiation of her back pain. She denies any change in her bowel or bladder control. She states that is not uncommon for her to get headaches with fever or infection. She states the headache is retro-orbital and is painful without radiation change in position or other factors such as throbbing etc. She is not photophobic or affected by loud noises etc. No change in vision no difficulty swallowing sore throat etc. No other known reason for fever. She has not any nausea vomiting or diarrhea cough exposure to infectious disease etc. MD elicited complaint: fever Associated symptoms: Reports flank pain, chills and headache(s); Deny abdominal pain, chest pain, diarrhea, extremity pain, nasal congestion, nausea or vomiting Related Data Home Medications Medication Instructions Recorded Confirmed ascorbic acid (vitamin C) 100 mg 100 mg PO BID 02/12/20 09/08/24 tablet (Vitamin C) bupropion HCl 300 mg 24 hr tablet, 300 mg PO QAM 06/22/21 09/08/24 extended release buspirone 10 mg tablet 10 mg PO BID 06/22/21 09/08/24 atorvastatin 10 mg tablet 10 mg PO DAILY 07/16/24 09/08/24 citalopram 40 mg tablet 40 mg PO BID 07/16/24 09/08/24 metoprolol succinate 25 mg 25 mg PO DAILY 07/16/24 09/08/24 tablet,extended release 24 hr trazodone 150 mg tablet 150 mg PO QPM 07/16/24 09/08/24 cyclobenzaprine 10 mg tablet 10 mg PO QID PRN Muscle Spasm 08/01/24 09/08/24 hydrocodone 10 mg-acetaminophen 1 tab PO QID PRN Pain 09/08/24 09/08/24 325 mg tablet Previous Rx's Medication Instructions Recorded ciprofloxacin HCl 500 mg tablet 500 mg PO BID #20 tabs 09/08/24 (Cipro) levofloxacin 750 mg tablet 750 mg PO DAILY 7 days #7 tabs 09/30/24 Allergies Allergy/AdvReac Type Severity Reaction Status Date / Time Penicillins Allergy Severe anaphylacti Verified 08/01/24 12:25 c sulfamethoxazole Allergy Severe anaphylacti Verified 08/01/24 12:25 [From Bactrim] c trimethoprim [From Bactrim] Allergy Severe anaphylacti Verified 08/01/24 12:25 c Sulfa (Sulfonamide Allergy Unknown Verified 08/01/24 12:25 Antibiotics) Review of Systems 2 Const: Reports: fever(s), chills and body aches Eyes: Denies: change in vision ENMT: Denies: throat pain, odynophagia, nasal discharge or nasal congestion Card: Denies: chest pain or palpitations Resp: Denies: dyspnea, productive cough or non-productive cough GI: Denies: abdominal pain, nausea, vomiting or diarrhea : Reports: flank pain Musc: Reports: back pain; Denies: neck pain, extremity pain or extremity swelling Skin/Breast: Denies: rash or pruritus Neuro: Reports: headache(s); Denies: numbness in extremities, weakness in extremities, dizziness or vertigo PFSH ED 2 PFSH: Medical History Smoker unmotivated to quit Chronic low back pain Encounter for long-term use of opiate analgesic S/P extracorporeal shock wave therapy Urolithiasis Cystitis cystica Surgical History S/P cholecystectomy S/P hysterectomy S/P tubal ligation Family History Family/Other CAD (coronary artery disease) Diabetes Cancer Stroke Mother , at age 67 Stroke Dementia Father , at age 53 CAD (coronary artery disease) Social History Smoking and tobacco/nicotine status: current every day tobacco/nicotine user cigarettes Packs smoked per day: 0.5 Alcohol intake: never Substance/Drug Use: never Adopted: No Caregiver/support person: No Lives independently: No Household members: significant other Marital status: Current occupational status: disabled Physical Exam 2 Narrative: EXAM NARRATIVE: She interacts and appears to be comfortable. She smiles during the interview and appears to move her head and neck in all usual ranges of motion and directions. Const: COMMON NORMALS: no acute distress, patient oriented x3 and alert G ENERAL APPEARANCE: cooperative and comfortable NUTRITIONAL APPEARANCE: o verweight HENMT: COMMON NORMALS: atraumatic HEAD & SCALP: atraumatic; no scalp tenderness and no Temporal artery tenderness present FACE & SINUS: f david symmetric Eye: COMMON NORMALS: Equal, round and reactive pupils present, EOMs intact bilaterally and conjunctivae normal CONJUNCTIVA: Yes conjunctivae normal P UPIL: Yes Equal, round and reactive pupils present Neck/C-Spine: COMMON NORMALS: full ROM and no meningeal signs CERVICAL SPINE: Yes cervical ROM normal, No Cervical spine tenderness, No step off deformity, No Paracervical muscle tenderness and No Paracervical spasm Resp: COMMON NORMALS: normal respiratory effort, No retractions, No use of accessory muscles and clear to auscultation bilaterally AUSCULTATION: clear to auscultation bilaterally Cardio: COMMON NORMALS: regular rate, regular rhythm, No murmurs present (Cardio) and Peripheral pulses 2+ throughout RATE: regular rate RHYTHM: r egular rhythm PERIPHERAL PULSES: Peripheral pulses 2+ throughout GI: COMMON NORMALS: Normal to inspection, nondistended, normoactive bowel sounds present, Soft to palpation and non-tender PALPATION: Yes Soft to palpation : BLADDER/KIDNEY EXAM: Yes CVA tenderness (Mild) Back/Pelvis: COMMON NORMALS: thoracic and lumbar spine normal to inspection, thoraco-lumbar ROM normal and straight leg raise negative bilaterally GENERAL BACK: Yes CVA tenderness (Mild) CVA tenderness: left SACROILIAC JOINTS: Yes SI joint(s) abnormal (Mild tenderness of the soft tissue overlying the right PSIS.) Extremity: COMMON NORMALS: normal to inspection, full ROM, capillary refill normal and no calf tenderness GENERAL: Yes normal exam except as noted Neuro: COMMON NORMALS: patient oriented x3, moves all extremities, no focal motor deficits, no sensory deficits noted and gait normal S ENSORIUM/ORIENTATION: Yes alert MENINGEAL SIGNS: Yes no meningeal signs C RANIAL NERVES: Yes CN normal except as noted Psych: COMMON NORMALS: mental status grossly normal Skin: COMMON NORMALS: no rashes or lesions noted, turgor normal and no jaundice GENERAL SKIN EXAM: no rashes or lesions noted and turgor normal Course 2 Reevaluation(s): Reevaluation #1: Patient is doing well. She states she is symptom-free at this point. Discussed reassuring nature of the CT scan without any evidence of obstructive stone or other thing that would preclude discharge without urologic consultation. Vital signs are reassuring and remainder of her laboratories and renal function are also reassuring. She will be discharged home on 7 days of Levaquin with primary care follow-up for repeat urinalysis. She voiced understanding and was stable for discharge. Time: 22:13 Vital Signs: Vital signs: Vital Signs Temperature 99.0 F 09/30/24 17:30 Pulse Rate 80 09/30/24 19:47 Respiratory Rate 16 09/30/24 18:45 Blood Pressure 133/51 09/30/24 19:47 Pulse Oximetry 95 09/30/24 19:47 Oxygen Delivery Me thod Room Air 09/30/24 18:45 MDM - Fever Medical Decision Making This patient presented as noted in HPI. She had a history of recent renal colic and states over the past 24 hours she has had fever and awoke this morning with fever and headache. Her headache symptoms were not atypical for her when she has an illness with an accompanying fever. There was no concerning history about her headache such as on sudden onset focal weakness etc. She did have associated flank pain and urinary frequency. Prior history of renal stones as well. Her clinical exam is reassuring without any focal findings of concern and no evidence of surgical abdomen by clinical examination. Differential included potential renal colic with urinary tract infection or other potential etiologies of flank pain with fever. Laboratories were obtained which were reassuring and that she had preserved renal function but that she did have abnormal urinalysis with pyuria and bacteria without hematuria. Because of her history of renal lithiasis a noncontrast CT scan was obtained to ensure that there was no obstructive renal stone, hydronephrosis etc. that would require additional evaluation and urologic support for potential treatment. She was given a loading dose of levofloxacin, IV fluids as well as ketorolac for analgesia. She had good response to treatment and had no ongoing symptoms to include no ongoing headache. CT scan revealed renal stones but no ureteral stones, hydronephrosis or other concerning findings. She is being discharged on oral antibiotics for the next 7 days with return precautions in a stable condition. No evidence of any other ongoing emergency medical condition of concern at this time. Lab Data I reviewed the patient's lab results. 09/30/24 19:17 09/30/24 19:17 Radiology Impressions Abdomen/Pelvis CT 09/30/24 20:54 IMPRESSION: 1. Bilateral nonobstructing renal stones. Single stone in the right kidney is better visualized compared with the previous study. Multiple left renal stones are stable. 2. Stable scattered diverticula in the colon. No evidence for diverticulitis. 3. Incidental/nonacute findings are listed in the report. Laboratory Results WBC 6.04 10^3/uL (3.29-11.43) 09/30/24 19:17 RBC 4.66 10^6/uL (3.85-5.65) 09/30/24 19:17 Hgb 14.20 g/dL (11.27-16.99) 09/30/24 19:17 Hct 42.6 % (36-47) 09/30/24 19:17 MCV 91.4 fl (85-98) 09/30/24 19:17 MCH 30.5 pg (27-33) 09/30/24 19:17 MCHC 33.3 g/dL (30-55) 09/30/24 19:17 RDW 15.0 % (12.1-15.1) 09/30/24 19:17 Plt Count 257 10^3/cmm (157-399) 09/30/24 19:17 MPV 8.7 fL (7.4-10.4) 09/30/24 19:17 Neut % (Auto) 57.2 % 09/30/24 19:17 Lymph % (Auto) 25.0 % 09/30/24 19:17 [place] % (Auto) 15.1 % 09/30/24 19:17 Eos % (Auto) 1.3 % 09/30/24 19:17 Baso % (Auto) 0.7 % 09/30/24 19:17 Neut # (Auto) 3.46 10^3/uL (1.8-7.7) 09/30/24 19:17 Lymph # (Auto) 1.5 10^3/uL (0.8-4.8) 09/30/24 19:17 [place] # (Auto) 0.9 10^3/uL (0.2-0.9) 09/30/24 19:17 Eos # (Auto) 0.1 10^3/uL (0.0-0.8) 09/30/24 19:17 Baso # (Auto) 0.0 10^3/uL (0.0-0.1) 09/30/24 19:17 Nucleated RBC % (auto) 0 % 09/30/24 19:17 Nucleated RBCs # 0.0 /100WBC 09/30/24 19:17 Sodium 131 mmol/L (136-145) L 09/30/24 19:17 Potassium 4.2 mmol/L (3.5-5.1) 09/30/24 19:17 Chloride 97 mmol/L (98-107) L 09/30/24 19:17 Carbon Dioxide 25 mmol/L (22-29) 09/30/24 19:17 Anion Gap 13.2 (5-19) 09/30/24 19:17 BUN 15 mg/dL (8-23) 09/30/24 19:17 Creatinine 1.0 mg/dL (0.5-0.9) H 09/30/24 19:17 GFR Calculation 55.5 mL/min (90-130) L 09/30/24 19:17 Glucose 80 mg/dL (65-115) 09/30/24 19:17 Calculated Osmolality 272 mOsm/kg (285-295) L 09/30/24 19:17 Lactic Acid 0.6 mmol/L (0.5-2.2) 09/30/24 19:17 Calcium 9.5 mg/dL (8.5-10.5) 09/30/24 19:17 Total Bilirubin 0.3 mg/dL (0.15-1.2) 09/30/24 19:17 AST 21 U/L (0-32) 09/30/24 19:17 ALT 21 U/L (0-33) 09/30/24 19:17 Alkaline Phosphatase 100 U/L (35-105) 09/30/24 19:17 Total Protein 6.9 g/dL (6.6-8.7) 09/30/24 19:17 Albumin 4.0 g/dL (3.5-5.2) 09/30/24 19:17 Globulin 2.9 g/dL (1.3-4.6) 09/30/24 19:17 Urine Color Yellow (Yellow) 09/30/24 19:35 Urine Appearance Cloudy (CLEAR) A 09/30/24 19:35 Urine pH 5.5 (5-7) 09/30/24 19:35 Ur Specific [place] 1.023 (1.005-1.030) 09/30/24 19:35 Urine Protein Trace (Negative) A 09/30/24 19:35 Urine Glucose (UA) Negative (Normal) 09/30/24 19:35 Urine Ketones Negative (Negative) 09/30/24 19:35 Urine Blood Non-haemolysed trace (Negative) 09/30/24 19:35 Urine Nitrate Negative (Negative) 09/30/24 19:35 Urine Bilirubin Negative (Negative) 09/30/24 19:35 Urine Urobilinogen 1.0 mg/dL (Negative) 09/30/24 19:35 Ur Leukocyte Esterase 3+ (Negative) A 09/30/24 19:35 Urine RBC 0-2 /hpf (0-2) 09/30/24 19:35 Urine WBC 21-50 /hpf (0-5) H 09/30/24 19:35 Ur Squamous Epith Cells 21-50 /hpf (0-5) 09/30/24 19:35 Amorphous Sediment Not Reportable 09/30/24 19:35 Urine Bacteria 4+ /hpf (NONE) H 09/30/24 19:35 Hyaline Casts 1.21 /lpf 09/30/24 19:35 Urine Opiates Screen Positive ng/mL (Negative) H 09/30/24 19:35 Ur Barbiturates Screen Negative ng/mL (Negative) 09/30/24 19:35 Ur Phencyclidine Scrn Negative ng/mL (Negative) 09/30/24 19:35 Ur Amphetamines Screen Negative ng/mL (Negative) 09/30/24 19:35 U Benzodiazepines Scrn Negative ng/mL (Negative) 09/30/24 19:35 Urine Cocaine Screen Negative ng/mL (Negative) 09/30/24 19:35 U Marijuana (THC) Screen Negative ng/mL (Negative) 09/30/24 19:35 All radiology interpretation(s) finalized by discharge Discharge Plan Discharge Patient Disposition: Home Clinical Impression: Urinary tract infection Qualifiers: Urinary tract infection type: site unspecified Condition: Stable Prescriptions: New levofloxacin 750 mg tablet 750 mg PO DAILY 7 Days Qty: 7 0RF No Action bupropion HCl 300 mg tablet extended release 24 hr 300 mg PO QAM metoprolol succinate 25 mg tablet extended release 24 hr 25 mg PO DAILY atorvastatin 10 mg tablet 10 mg PO DAILY citalopram 40 mg tablet 40 mg PO BID trazodone 150 mg tablet 150 mg PO QPM cyclobenzaprine 10 mg tablet 10 mg PO QID PRN (Reason: Muscle Spasm) Vitamin C 100 mg Tablet 100 mg PO BID Hold Instructions: Resume on 03/30/22. buspirone 10 mg tablet 10 mg PO BID hydrocodone-acetaminophen 10-325 mg tablet 1 tab PO QID PRN (Reason: Pain) ciprofloxacin HCl [Cipro] 500 mg tablet 500 mg PO BID Qty: 20 0RF Discharge Orders: Discharge ED (Routine); Ordered 09/30/24 Ordered By: Janusz Brown Referrals: Gab Ureña MD [Primary Care Provider] - 7-10 days (Follow-up on urinary tract infection for test of cure) Discharge Diet: Advance as tolerated Discharge Activity: Increase activity as tolerated Patient Instructions: Opioid Safety, Pain Management Activity Restrictions/Additional Instructions: As we discussed you have a kidney infection for which we have prescribed antibiotics to treat that infection. You should take the antibiotics for the full 7 days. You should make sure that you are drinking at least 2 quarts of fluids predominantly water or sports drinks on a daily basis. If you are not improving after being on antibiotics 48 hours or worse at any time you are welcome and encouraged to return to this or nearest emergency department for reevaluation. We also recommend that you follow-up with your regular family doctor in approximately 7 to 10 days for reevaluation to ensure that your infection has totally cleared. Coding Level of Care Code ED [employer] for Estevan Blake
[2024-09-30] MEDS: ketorolac 30 mg/mL INJ 15 MG IVP (19:20)
[2024-09-30] MEDS: sodium chloride 0.9% 1,000 ML 999 ML IV (19:21)
[2024-09-30 19:26] LABS: Basophils % 0.7 %; Eosinophils # 0.1 10^3/uL (0.0-0.8); Eosinophils % 1.3 %; Hematocrit 42.6 % (36-47); Lymphocytes # 1.5 10^3/uL (0.8-4.8); Mean Corpuscular HGB Conc 33.3 g/dL (30-55); Mean Corpuscular Hemoglobin 30.5 pg (27-33); Mean Corpuscular Volume 91.4 fl (85-98); Mean Platelet Volume 8.7 fL (7.4-10.4); Monocytes # 0.9 10^3/uL (0.2-0.9); Monocytes % 15.1 %; Neutrophils # 3.46 10^3/uL (1.8-7.7); Neutrophils % 57.2 %; Nucleated Red Blood Cells % 0 %; Platelet Count 257 10^3/cmm (157-399); Red Blood Count 4.66 10^6/uL (3.85-5.65); White Blood Count 6.04 10^3/uL (3.29-11.43)
[2024-09-30 19:41] LABS: Alanine Aminotransferase 21 U/L (0-33); Alkaline Phosphatase 100 U/L (35-105); Anion Gap 13.2 (5-19); Aspartate Amino Transferase 21 U/L (0-32); Blood Urea Nitrogen 15 mg/dL (8-23); Calcium 9.5 mg/dL (8.5-10.5); Carbon Dioxide 25 mmol/L (22-29); Chloride 97 mmol/L (98-107); Creatinine Clr Calc Pharmacy 59.1672; Globulin 2.9 g/dL (1.3-4.6); Glomerular Filtration Rate 55.5 mL/min (90-130); Glucose 80 mg/dL (65-115); Lactic Sepsis W/Reflex 0.6 mmol/L (0.5-2.2); Osmolality Calculated 272 mOsm/kg (285-295); Potassium 4.2 mmol/L (3.5-5.1); Sodium 131 mmol/L (136-145); Total Bilirubin 0.3 mg/dL (0.15-1.2); Total Protein 6.9 g/dL (6.6-8.7)
[2024-09-30 19:47] VITALS: BP 133/51; PULSE 80; O2SAT 95
[2024-09-30 19:58] LABS: Bilirubin Urine Negative (Negative); Blood Urine Non-haemolysed trace (Negative); Glucose Urine UA Negative (Normal); Ketones Urine Negative (Negative); Leukocyte Esterase Urine 3+ (Negative); Nitrate Urine Negative (Negative); Protein Urine Trace (Negative); Specific Gravity, Urine 1.023 (1.005-1.030); Urine Appearance Cloudy (CLEAR); Urine Color Yellow (Yellow); pH Urine 5.5 (5-7)
[2024-09-30 20:03] LABS: Bacteria Urine 4+ /hpf; Hyaline Casts Urine 1.21 /lpf; RBC Urine 0-2 /hpf (0-2); Squamous Epithelial Cell Urine 21-50 /hpf (0-5); WBC Urine 21-50 /hpf (0-5)
[2024-09-30 20:05] LABS: Amphetamines Screen Urine Negative (Negative); Barbiturates Screen Urine Negative (Negative); Benzodiazepines Screen Urine Negative (Negative); Cocaine Screen Urine Negative (Negative); Opiate Screen Urine Positive (Negative); PCP Screen Urine Negative (Negative); THC Screen Urine Negative (Negative)
[2024-09-30 20:40] LABS: Add Urine Culture? No
--- NOTE | 2024-09-30 20:54 | CTR_ITS ---
PROCEDURE INFORMATION: Exam: CT Abdomen And Pelvis Without Contrast Exam date and time: 09/30/2024 9:02 PM Age: 64 years old Clinical indication: Other: Lt flank pain; Additional info: Left flank pain with UTI TECHNIQUE: Imaging protocol: Computed tomography of the abdomen and pelvis without contrast. Sagittal and coronal reformatted images were created and reviewed. Radiation optimization: All CT scans at this facility use at least one of these dose optimization techniques: automated exposure control; mA and/or kV adjustment per patient size (includes targeted exams where dose is matched to clinical indication); or iterative reconstruction. COMPARISON: CT abdomen pelvis wo con [id number] 09/08/2024 12:28 PM RADIATION DOSE METRICS: Total DLP (mGy-cm): 880.78 FINDINGS: Limitations: Evaluation of solid organs and vasculature is limited without intravenous contrast. This is standard protocol for evaluation of possible urolithiasis. Lungs: Visualized lungs are clear. Pleural spaces: No pleural effusion. Heart: Stable mild enlargement of the visualized portions of the heart. Liver: The liver is unremarkable. Gallbladder and biliary ducts: Stable findings consistent with a previous cholecystectomy. No biliary ductal dilatation. Pancreas: The pancreas is unremarkable. No pancreatic ductal dilatation. Spleen: The spleen is unremarkable. Adrenal glands: The right and left adrenal glands are unremarkable. Kidneys and ureters: Nonobstructing stones in both right and left kidneys. The right kidney stone measures 2.2 mm, this is better visualized compared with the previous study (series 3, image 109). Multiple stones in the left kidney are stable, the largest measures 4.3 mm (series 3, image 79). The right and left ureters are unremarkable. Stomach and bowel: Stable scattered diverticula in the colon. No evidence for diverticulitis. The stomach is unremarkable for the degree of distension. No acute abnormality in the small bowel. No acute abnormality in the colon. Appendix: The appendix is visualized and is unremarkable. No findings to suggest acute appendicitis. Intraperitoneal space: No free intraperitoneal air. No ascites. No loculated fluid collections to suggest an abscess. Vasculature: Mild atherosclerotic changes in the visualized arteries. No evidence for aortic aneurysm. Lymph nodes: No lymphadenopathy. Urinary bladder: The bladder is unremarkable for the degree of distension. Reproductive: Stable changes consistent with a previous hysterectomy. The ovaries are not definitely visualized, not an expected in a postmenopausal female. This may be due to ovarian atrophy. Alternatively, the patient may have had a previous bilateral oophorectomy. Findings are stable. Bones/joints: Multiple bone islands in the right acetabulum and right femur. Degenerative changes in the spine, sacroiliac joints, and hips. Grade I anterolisthesis of L4 on L5, likely due to facet degenerative change. Soft tissues: No acute abnormality in the extra-abdominal soft tissues. CT/CT kidney stone [id number] IMPRESSION: 1. Bilateral nonobstructing renal stones. Single stone in the right kidney is better visualized compared with the previous study. Multiple left renal stones are stable. 2. Stable scattered diverticula in the colon. No evidence for diverticulitis. 3. Incidental/nonacute findings are listed in the report.
[2024-09-30] MEDS: levofloxacin-dextrose 5 % 750 MG/150 ML PREMIX 100 MG IV (20:59)
[2024-09-30 22:00] VITALS: PULSE 72; RESP 16; O2SAT 94
[2024-09-30 22:53] VITALS: BP 136/80; PULSE 75; RESP 16; O2SAT 93
== END 2024-09-30 22:49 | disposition home or self-care (01) ==
PROVIDERS: Emergency Medicine; Emergency Provider Emergency Medicine; PCP Family Medicine
DX: N39.0 Urinary tract infection, site not specified (principal); F17.210 Nicotine dependence, cigarettes, uncomplicated
CPT/HCPCS: 74176; 80053; 80306; 81001; 83605; 85025; 87040; 96365; 96366; 96375; 99285; J1885; J1956; J7030

== ENCOUNTER → 2024-10-01 10:39 | Outpatient (BNVA) | payer MEDICARE, MEDICAID, SELFPAY | PROVIDERS: PCP Family Medicine; Visit Provider Nurse Practitioner Family | DX: R94.39 Abnormal result of other cardiovascular function study (principal); Z87.891 Personal history of nicotine dependence; R00.2 Palpitations; R07.89 Other chest pain; R06.09 Other forms of dyspnea | CPT/HCPCS: 99213 ==

== ENCOUNTER 2025-01-22 15:09 | Outpatient (CLI) | payer MEDICARE, MEDICAID, SELFPAY ==
--- NOTE | 2025-01-22 15:19 | XR_ITS ---
WS: [id number] Chest 2 views, 01/22/2025 Clinical Data: SHORTNESS OF BREATH Comparison: Portable chest, 02/21/2020 Findings: No nodules, masses or effusions are seen. The heart is normal. The pulmonary vascularity is not increased. No pneumonia or pneumothorax is seen. The aortic arch and descending thoracic aorta show mild tortuosity. There is a slight dextroscoliosis. There are right upper quadrant cholecystectomy clips. XR/XR chest 2V* [id number] Impression: Atherosclerosis.
== END 2025-01-22 15:10 | disposition home or self-care (01) ==
LOC: RAD 15:16
PROVIDERS: PCP Family Medicine; Visit Provider Family Medicine
DX: R06.02 Shortness of breath (principal); R93.89 Abnormal findings on diagnostic imaging of other specified body structures; M41.80 Other forms of scoliosis, site unspecified; Z90.49 Acquired absence of other specified parts of digestive tract; I70.90 Unspecified atherosclerosis
CPT/HCPCS: 71046

== ENCOUNTER 2025-02-05 10:05 | Outpatient (CLI) | payer OTHER, MEDICAID, SELFPAY | END 2025-02-05 10:06 | disposition home or self-care (01) | LOC: RT 10:07 | PROVIDERS: PCP Family Medicine; Visit Provider Family Medicine | DX: R06.02 Shortness of breath (principal); R94.2 Abnormal results of pulmonary function studies | CPT/HCPCS: 94010; 94729 ==

== ENCOUNTER 2025-04-04 13:46 | Outpatient (CLI) | payer OTHER, MEDICAID, SELFPAY ==
--- NOTE | 2025-04-04 13:51 | USR_ITS ---
PROCEDURE INFORMATION: Exam: US Abdomen; Limited Exam date and time: 04/04/2025 2:56 PM Age: 64 years old Clinical indication: Mass, lump, or swelling; Llq; ; Additional info: ? Spider bite, left lower abd. Open wound with hard lump TECHNIQUE: Imaging protocol: Real time ultrasound of the abdomen with image documentation. Limited exam focused on the region of clinical interest. COMPARISON: US abdomen limited [id number] 03/03/2020 7:22 AM FINDINGS: Soft tissues: The subcutaneous fat in the left lower abdomen at the site of palpable abnormality and pain is heterogeneously echogenic with focal dermal thickening and tiny foci of subdermal fluid measuring 2-3 mm. No drainable fluid collection is seen. US/US abdomen limited [id number] IMPRESSION: 1. No drainable abscess. Tiny intradermal/superficial subdermal fluid collections at the site of palpable abnormality measure up to 3 mm. 2. Echogenic subcutaneous fat in the left lower abdomen at the site of palpable abnormality consistent with cellulitis.
== END 2025-04-04 13:47 | disposition home or self-care (01) ==
PROVIDERS: PCP Family Medicine; Visit Provider Family Medicine
DX: T14.8XXA Other injury of unspecified body region, initial encounter (principal); R93.5 Abnormal findings on diagnostic imaging of other abdominal regions, including retroperitoneum; X58.XXXA Exposure to other specified factors, initial encounter
CPT/HCPCS: 76705

== ENCOUNTER 2025-05-02 08:56 | Outpatient (CLI) | payer OTHER, MEDICAID, SELFPAY ==
--- NOTE | 2025-05-02 09:00 | CT_ITS ---
WS: [id number] LDCT LUNG CANCER SCREENING HISTORY: NICOTINE DEPENDENCE, CIGARETTES TECHNIQUE: Axial imaging performed from the apices to 1 cm below the costophrenic angles. Coronal and sagittal reformats are submitted with axial MIP series. All CT scans at [facility] use at least one of these dose optimization techniques: automated exposure control; mA and/or kV adjustment per patient size (includes targeted exams where dose is matched to clinical indication); or iterative reconstruction. DLP: 63.51 mGy.cm DIvol: Mean CTDIvol: 1.50 (mGy) COMPARISON: 07/03/2017 Diagnostic quality: Satisfactory Lungs: Chronic emphysema. 2 mm nodule LEFT apex. Peripheral interstitial thickening and reticulation. No pulmonary mass or nodule. Secretions in the dependent portion of the trachea. Heart: Normal size heart with no pericardial effusion.. Other findings: Minimal atherosclerosis aorta. Normal size pulmonary artery. No pathologically enlarged lymph nodes. Prior cholecystectomy. Negative adrenal glands as visualized. The entire LEFT adrenal gland is not imaged or included. Increase in thoracic kyphosis. Schmorl's node defect superior endplate of what is probably T10. CT/CT lung screening [id number] IMPRESSION: LUNG-RADS: 2-Benign Appearance or Behavior FOLLOW UP: 12 Month: Continue annual screening with LDCT OTHER FINDINGS (S MODIFIER): None.
== END 2025-05-02 08:57 | disposition home or self-care (01) ==
PROVIDERS: PCP Family Medicine; Visit Provider Family Medicine
DX: Z12.2 Encounter for screening for malignant neoplasm of respiratory organs (principal); F17.210 Nicotine dependence, cigarettes, uncomplicated; J43.9 Emphysema, unspecified; R91.1 Solitary pulmonary nodule; Z90.49 Acquired absence of other specified parts of digestive tract; M40.04 Postural kyphosis, thoracic region; M40.204 Unspecified kyphosis, thoracic region
CPT/HCPCS: 71271

== ENCOUNTER 2025-09-10 11:31 | Outpatient (CLI) | payer OTHER, SELFPAY ==
--- NOTE | 2025-09-10 11:36 | MM_ITS ---
WS: [id number] BILATERAL SCREENING DIGITAL TOMOSYNTHESIS MAMMOGRAM WITH CAD HISTORY: SCREENING MAMMOGRAM FOR BREAST CANCER COMPARISON: 09/03/2024, 07/24/2024, 12/26/2017, 09/16/2020 Bilateral CC and MLO views with tomosynthesis and synthetic mammography submitted. Computer aided detection analyzed. Breast composition: There are scattered areas of fibroglandular density. No suspicious masses, microcalcifications or architectural distortion. Biopsy clip in the central LEFT breast. There are multiple well-circumscribed masses in the LEFT breast which are stable over multiple years. Benign calcifications in each breast. MM/MM scr BI tomosynthesis [id number] IMPRESSION: BI-RADS: 2 - Benign. FOLLOW UP: 1 Year Follow-up
== END 2025-09-10 11:32 | disposition home or self-care (01) ==
LOC: RAD 11:32
PROVIDERS: PCP Family Medicine; Visit Provider Family Medicine
DX: Z12.31 Encounter for screening mammogram for malignant neoplasm of breast (principal); R92.323 Mammographic fibroglandular density, bilateral breasts; Z96.89 Presence of other specified functional implants; R92.1 Mammographic calcification found on diagnostic imaging of breast; N63.20 Unspecified lump in the left breast, unspecified quadrant
CPT/HCPCS: 77063; 77067